=== PATIENT | male | born 1965 | race African-American/Black ===

== ENCOUNTER 2016-11-19 22:50 | Inpatient (IN) | payer OTHER ==
--- NOTE | 2016-11-19 23:12 | HP ---
CIWA Score - CIWA Score Nausea/Vomitin-Mild Nausea/No Vomiting Muscle Tremors: 5 Anxiety: 4-Mod. Anxious/Guarded Agitation: 4-Moderately Restless Paroxysmal Sweats: 2 Orientation: 3-Disoriented Date>2 days Tacttile Disturbances: 0-None Auditory Disturbances: 0-None Visual Disturbances: 0-None Headache: 1-Very Mild CIWA-Ar Total Score: 20 Admission ROS BHS - HPI Chief Complaint: WITHDRAWAL SX Allergies/Adverse Reactions: Allergies Allergy/AdvReac Type Severity Reaction Status Date / Time No Known Allergies Allergy Verified 08/22/16 12:14 History of Present Illness: 50 YEARS OLD MALE WITH LONG HISTORY OF ALCOHOL COCAINE NICOTINE DEPENDENT, HAS GERD AND TOOTH ACHE AND DEPRESSION IS ADMITTED TO DETOX Exam Limitations: No Limitations - Ebola screening Have you traveled outside of the country in the last 21 days: No Have you had contact with anyone from an Ebola affected area: No Have you been sick,other than usual withdrawal symptoms: No Do you have a fever: No - Review of Systems Constitutional: Chills, Loss of Appetite, Changes in sleep, Unintentional Wgt. Loss, Unexplained wgt Loss EENT: reports: No Symptoms Reported, Dental Problems (RIGHT UPPER TOOTH INFECTION) Respiratory: reports: No Symptoms reported Cardiac: reports: No Symptoms Reported GI: reports: Diarrhea, Nausea, Poor Appetite, Poor Fluid Intake, Indigestion, Abdominal cramping : reports: No Symptoms Reported Musculoskeletal: reports: Joint Pain, Muscle Pain (RIGHT HAND ARTHRITIS) Integumentary: reports: No Symptoms Reported Neuro: reports: Tremors Endocrine: reports: No Symptoms Reported Hematology: reports: No Symptoms Reported Psychiatric: reports: Judgement Intact, Depressed Other Systems: Reviewed and Negative Patient History - Patient Medical History Hx Anemia: No Hx Asthma: No Hx Chronic Obstructive Pulmonary Disease (COPD): No Hx Cancer: No Hx Cardiac Disorders: No Hx Congestive Heart Failure: No Hx Hypertension: No Hx Hypercholesterolemia: No Hx Pacemaker: No HX Cerebrovascular Accident: No Hx Seizures: No Hx Dementia: No Hx Diabetes: No Hx Gastrointestinal Disorders: Yes Hx Liver Disease: No Hx Genitourinary Disorders: No Hx Sexually Transmitted Disorders: No Hx Renal Disease (ESRD): No Hx Thyroid Disease: No Hx Human Immunodeficiency Virus (HIV): No (NEGATIVE HX) Hx Hepatitis C: No Hx Depression: Yes (ON MED) Hx Suicide Attempt: No Hx Bipolar Disorder: No Hx Schizophrenia: No - Patient Surgical History Past Surgical History: Yes Hx Neurologic Surgery: No Hx Cataract Extraction: No Hx Cardiac Surgery: No Hx Lung Surgery: No Hx Breast Surgery: No Hx Breast Biopsy: No Hx Abdominal Surgery: No Hx Appendectomy: No Hx Cholecystectomy: No Hx Genitourinary Surgery: No Hx Orthopedic Surgery: Yes (LOWER JAW FX 1990) Anesthesia Reaction: No - PPD History Previous Implant?: Yes Documented Results: Positive w/proof Implanted On Prior [facility] Admission?: Yes Date: 03/02/15 (NEGATIVE WEEK AGO IN [facility]) Results: 05 mm PPD to be Administered?: Yes - Smoking Cessation Smoking history: Current every day smoker Have you smoked in the past 12 months: Yes Aproximately how many cigarettes per day: 20 Cigars Per Day: 0 Hx Chewing Tobacco Use: No Initiated information on smoking cessation: Yes 'Breaking Loose' booklet given: 11/19/16 - Substance & Tx. History Hx Alcohol Use: Yes Hx Substance Use: Yes Substance Use Type: Alcohol, Cocaine Hx Substance Use Treatment: Yes - Substances Abused Alcohol Route: Oral Frequency: Daily Amount used: 40OZX6+ PINT VOLKA Age of first use: 30 Date of Last Use: 11/18/16 Family Disease History - Family Disease History Family Disease History: Diabetes: Grandparent, Mother, Heart Disease: Father, Mother Admission Physical Exam [facility] - Physical General Appearance: Yes: Appropriately Dressed, Moderate Distress, Thin, Tremorous, Irritable, Sweating, Anxious HEENTM: Yes: Hearing grossly Normal, Normal ENT Inspection, Normocephalic, Normal Voice Respiratory: Yes: Chest Non-Tender, Lungs Clear, Normal Breath Sounds, No Respiratory Distress, No Accessory Muscle Use Neck: Yes: Supple, Trachea in good position Breast: Yes: Breasts Symetrical Cardiology: Yes: Regular Rhythm, S1, S2, Tachycardia Abdominal: Yes: Non Tender, Soft Genitourinary: Yes: Within Normal Limits Back: Yes: Normal Inspection Musculoskeletal: Yes: full range of Motion, Gait Steady, Back pain, Muscle Pain Extremities: Yes: Normal Range of Motion, Non-Tender, Tremors Neurological: Yes: Alert, Motor Strength 5/5, Normal Response, Depressed Affect Integumentary: Yes: Warm, Clammy Lymphatic: Yes: Within Normal Limits - Diagnostic (1) Alcohol dependence with uncomplicated withdrawal Current Visit: Yes Status: Acute Comment: LIBRIUM (2) Bipolar II disorder Current Visit: Yes Status: Suspected Comment: ZOLOFT+TRAZODON+SEROQUEL (3) Nicotine dependence Current Visit: Yes Status: Acute Qualifiers: Nicotine product type: cigarettes Substance use status: in withdrawal Qualified Code(s): F17.213 - Nicotine dependence, cigarettes, with withdrawal Comment: NICOTINE PATCH + GUM (4) weight loss Current Visit: Yes Status: Acute Comment: ENSURE (5) Tooth abscess Current Visit: Yes Status: Acute Comment: AUGMENTIN+CHLORHEXDINE+LIDOCAINE 2% (6) Positive PPD, treated Current Visit: Yes Status: Resolved Comment: NEGATIVE CHEST X RAY 08/2016 Cleared for Admission S - Detox or Rehab S Level of Care: Medically Managed Detox Regimen/Protocol: Librium (PATIENT CONCUR TREATMENT REGIMEN) [facility] Breath Alcohol Content Breath Alcohol Content: 0 Vital Signs - Vital Signs Vital Signs Refused: No Temperature: 97.9 F Temperature Source: Oral Pulse Rate: 90 Respiratory Rate: 20 Blood Pressure: 123/79 BP Location: Left Arm Blood Pressure Position: Sitting - Height Height: 5 ft 11 in - Weight Weight: 186 lb Weight Measurement Method: Standing Scale Body Mass Index (BMI): 25.9 - Bowel Function Bowel Movement: Yes Urine Drug Screen - Control Is Test Valid: Yes - Results Drug Screen Negative: No Urine Drug Screen Results: JOVANA-Cocaine
[2016-11-19] MEDS ORDERED: MAGNESIUM CITRATE 300 ML BOTTLE PO PRN (23:20)
[2016-11-19] MEDS ORDERED: MENTHOL/PHENOL 1 EACH UD MM PRN (23:20)
[2016-11-19] MEDS ORDERED: diphenhydrAMINE HCL 50 MG CAPSULE PO PRN (23:20)
[2016-11-19] MEDS ORDERED: ACETAMINOPHEN 325 MG TABLET (FP) PO PRN (23:20)
[2016-11-19] MEDS ORDERED: hydrOXYzine PAMOATE 50 MG CAPSULE (FP) PO PRN (23:20)
[2016-11-19] MEDS ORDERED: MAG HYDROX/AL HYDROX/SIMETH 30 ML UNIT-DOSE CUP PO PRN (23:20)
[2016-11-19] MEDS ORDERED: guaiFENesin/D-METHORPHAN HB 10 ML UNIT-DOSE CUPS PO PRN (23:20)
[2016-11-19] MEDS ORDERED: chlordiazePOXIDE HCL 25 MG CAPSULE PO ONE (23:20)
[2016-11-19] MEDS ORDERED: LOPERAMIDE HCL 2 MG CAPSULE PO PRN (23:20)
[2016-11-19] MEDS ORDERED: NICOTINE POLACRILEX 4 MG GUM BC PRN (23:20)
[2016-11-19] MEDS ORDERED: P-EPHED 60MG/TRIPROLIDI 2.5MG TABLET PO PRN (23:20)
[2016-11-19] MEDS ORDERED: MAGNESIUM HYDROX 2400MG/30ML ORAL SUSPENSION 30 ML CUP PO PRN (23:20)
[2016-11-19 23:22] VITALS: BMI 25.9
[2016-11-19] MEDS ORDERED: LIDOCAINE VISCOUS 2% ORAL/TOP 20 ML UNIT-DOSE CUP MM SCH (23:30)
[2016-11-20] MEDS ORDERED: diphenhydrAMINE HCL 25 MG CAPSULE (FP) PO ONE (00:51)
[2016-11-20] MEDS: RANITIDINE HCL 150 MG TABLET (FP) PO SCH ×3 (00:53→22:47)
[2016-11-20] MEDS: GABAPENTIN 300 MG CAPSULE (FP) PO SCH ×4 (00:53→22:47)
[2016-11-20] MEDS: chlordiazePOXIDE HCL 25 MG CAPSULE PO SCH ×5 (00:55→22:47)
[2016-11-20] MEDS: AMOX TR/POT CLAV 875MG/125MG TABLETS (FP) PO SCH ×2 (07:20→17:47)
[2016-11-20] MEDS: LIDOCAINE VISCOUS 2% ORAL/TOP 20 ML UNIT-DOSE CUP MM SCH ×3 (07:21→22:47)
[2016-11-20] MEDS: CHLORHEXIDINE GLUCONATE 0.12% 15ML CUP MM SCH ×3 (07:27→22:46)
--- NOTE | 2016-11-20 09:23 | PN ---
S CIWA - CIWA Score Nausea/Vomitin Muscle Tremors: 3 Anxiety: 3 Agitation: 2 Paroxysmal Sweats: 1-Minimal Palms Moist Orientation: 0-Oriented Tacttile Disturbances: 1-Very Mild Itch/Numbness Auditory Disturbances: 1-Very Mild Visual Disturbances: 1-Very Mild Sensitivity Headache: 2-Mild CIWA-Ar Total Score: 17 BHS Progress Note (SOAP) Subjective: ALERT,IRRITABLE,ANXIOUS,INTERRUPTED SLEEP,TREMOR Objective: 11/20/16 09:21 Vital Signs Temperature 96.6 F L 11/20/16 06:47 Pulse Rate 62 11/20/16 06:47 Respiratory Rate 18 11/20/16 06:47 Blood Pressure 103/77 11/20/16 06:47 O2 Sat by Pulse Oximetry (%) EKG NSR LABS PENDING Assessment: 11/20/16 09:22 WITHDRAWAL SYMPTOM Plan: CONTINUE DETOX
[2016-11-20 10:35] LABS: MCH 30.2 pg (25.7-33.7); MCHC 33.8 g/dl (32.0-35.9); MEAN CELL VOLUME 89.4 fl (80-96); PLATELET COUNT 139 K/MM3 (134-434); RDW 12.8 % (11.9-15.9); WHITE BLOOD COUNT 6.3 K/mm3 (4.0-10.0)
[2016-11-20] MEDS: PRENATAL VITAMINS W/ FOLIC ACID TABLET (FP) PO SCH (10:49)
[2016-11-20] MEDS: NICOTINE 21 MG/24 HOURS TOPICAL PATCH TD SCH (10:49)
[2016-11-20 10:56] LABS: ANION GAP 8 (8-16); CALCIUM 8.3 mg/dL (8.5-10.1); CO2 29 mmol/L (21-32); GLUCOSE,RANDOM 85 mg/dL (74-106); SGOT/AST 6 U/L (15-37); SGPT/ALT 15 U/L (12-78)
[2016-11-20 10:59] LABS: ALBUMIN 3.6 g/dl (3.4-5.0); ALK PHOS 63 U/L (45-117); BILIRUBIN,TOTAL 0.4 mg/dL (0.2-1.0); TOT PROT 5.7 g/dl (6.4-8.2)
--- NOTE | 2016-11-20 13:19 | EKG ---
Test Reason : Blood Pressure : / mmHG Vent. Rate : 076 BPM Atrial Rate : 076 BPM P-R Int : 158 ms QRS Dur : 098 ms QT Int : 384 ms P-R-T Axes : 061 -39 036 degrees QTc Int : 432 ms NORMAL SINUS RHYTHM LEFT AXIS DEVIATION ABNORMAL ECG NO PREVIOUS ECGS AVAILABLE Confirmed by EVAN MENDEZ MD ([id number]) on 11/20/2016 1:18:58 PM Referred By: Confirmed By:EVAN MENDEZ MD
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
[2016-11-20] MEDS: chlordiazePOXIDE HCL 25 MG CAPSULE PO PRN (14:04)
[2016-11-20] MEDS: THIAMINE HCL 100 MG TABLET (FP) PO SCH (22:46)
[2016-11-20] MEDS: QUEtiapine FUMARATE 200 MG TABLET PO SCH (22:46)
[2016-11-21] MEDS: GABAPENTIN 300 MG CAPSULE (FP) PO SCH ×3 (05:53→22:30)
[2016-11-21] MEDS: chlordiazePOXIDE HCL 25 MG CAPSULE PO SCH ×3 (05:53→17:04)
[2016-11-21] MEDS: LIDOCAINE VISCOUS 2% ORAL/TOP 20 ML UNIT-DOSE CUP MM SCH ×3 (05:53→22:33)
[2016-11-21] MEDS: CHLORHEXIDINE GLUCONATE 0.12% 15ML CUP MM SCH ×3 (05:53→22:31)
[2016-11-21] MEDS: AMOX TR/POT CLAV 875MG/125MG TABLETS (FP) PO SCH ×2 (07:19→17:04)
[2016-11-21] MEDS ORDERED: QUEtiapine FUMARATE 100 MG TABLET (FP) PO SCH (10:00)
--- NOTE | 2016-11-21 10:38 | PN ---
S CIWA - CIWA Score Nausea/Vomitin Muscle Tremors: 3 Anxiety: 3 Agitation: 2 Paroxysmal Sweats: 1-Minimal Palms Moist Orientation: 0-Oriented Tacttile Disturbances: 1-Very Mild Itch/Numbness Auditory Disturbances: 1-Very Mild Visual Disturbances: 1-Very Mild Sensitivity Headache: 2-Mild CIWA-Ar Total Score: 17 BHS Progress Note (SOAP) Subjective: ALERT,IRRITABLE,ANXIOUS,INTERRUPTED SLEEP,TREMOR,CONSTIPATION, Objective: 11/21/16 10:36 Vital Signs Temperature 96.6 F L 11/21/16 09:53 Pulse Rate 84 11/21/16 09:53 Respiratory Rate 18 11/21/16 09:53 Blood Pressure 119/74 11/21/16 09:53 O2 Sat by Pulse Oximetry (%) EKG NSR 11/21/16 10:37 Laboratory Last Values WBC 6.3 K/mm3 (4.0-10.0) 11/20/16 07:00 RBC 4.61 M/mm3 (4.00-5.60) 11/20/16 07:00 Hgb 13.9 GM/dL (11.7-16.9) 11/20/16 07:00 Hct 41.2 % (35.4-49) 11/20/16 07:00 MCV 89.4 fl (80-96) 11/20/16 07:00 MCHC 33.8 g/dl (32.0-35.9) 11/20/16 07:00 RDW 12.8 % (11.9-15.9) 11/20/16 07:00 Plt Count 139 K/MM3 (134-434) 11/20/16 07:00 MPV 8.0 fl (7.5-11.1) D 11/20/16 07:00 Sodium 144 mmol/L (136-145) 11/20/16 07:00 Potassium 3.6 mmol/L (3.5-5.1) 11/20/16 07:00 Chloride 107 mmol/L (98-107) 11/20/16 07:00 Carbon Dioxide 29 mmol/L (21-32) 11/20/16 07:00 Anion Gap 8 (8-16) 11/20/16 07:00 BUN 20 mg/dL (7-18) H D 11/20/16 07:00 Creatinine 1.0 mg/dL (0.7-1.3) 11/20/16 07:00 Creat Clearance w eGFR > 60 (>60) 11/20/16 07:00 Random Glucose 85 mg/dL (74-106) D 11/20/16 07:00 Calcium 8.3 mg/dL (8.5-10.1) L 11/20/16 07:00 Total Bilirubin 0.4 mg/dL (0.2-1.0) D 11/20/16 07:00 AST 6 U/L (15-37) L D 11/20/16 07:00 ALT 15 U/L (12-78) 11/20/16 07:00 Alkaline Phosphatase 63 U/L (45-117) 11/20/16 07:00 Total Protein 5.7 g/dl (6.4-8.2) L 11/20/16 07:00 Albumin 3.6 g/dl (3.4-5.0) 11/20/16 07:00 RPR Titer Nonreactive (NONREACTIVE) 11/20/16 07:00 Hepatitis C Antibody <0.1 s/co ratio (0.0-0.9) 11/19/16 07:00 Assessment: 11/21/16 10:38 WITHDRAWAL SYMPTOM Plan: CONTINUE DETOX
[2016-11-21] MEDS: PRENATAL VITAMINS W/ FOLIC ACID TABLET (FP) PO SCH (10:44)
[2016-11-21] MEDS: SERTRALINE HCL 50 MG TABLET (FP) PO SCH (10:44)
[2016-11-21] MEDS: NICOTINE 21 MG/24 HOURS TOPICAL PATCH TD SCH (10:44)
[2016-11-21] MEDS: RANITIDINE HCL 150 MG TABLET (FP) PO SCH ×2 (10:44→22:30)
[2016-11-21] MEDS: DOCUSATE SODIUM 100 MG CAPSULE (FP) PO SCH ×2 (14:55→22:30)
[2016-11-21] MEDS: THIAMINE HCL 100 MG TABLET (FP) PO SCH (22:30)
[2016-11-21] MEDS: chlordiazePOXIDE 5 MG CAPSULE PO SCH (22:30)
[2016-11-21] MEDS: QUEtiapine FUMARATE 200 MG TABLET PO SCH (22:30)
[2016-11-22] MEDS: DOCUSATE SODIUM 100 MG CAPSULE (FP) PO SCH ×3 (05:35→22:35)
[2016-11-22] MEDS: GABAPENTIN 300 MG CAPSULE (FP) PO SCH ×3 (05:35→22:35)
[2016-11-22] MEDS: CHLORHEXIDINE GLUCONATE 0.12% 15ML CUP MM SCH ×3 (05:35→22:35)
[2016-11-22] MEDS: chlordiazePOXIDE 5 MG CAPSULE PO SCH ×3 (05:35→17:30)
[2016-11-22] MEDS: LIDOCAINE VISCOUS 2% ORAL/TOP 20 ML UNIT-DOSE CUP MM SCH ×3 (05:35→22:39)
[2016-11-22] MEDS: AMOX TR/POT CLAV 875MG/125MG TABLETS (FP) PO SCH ×2 (08:00→17:30)
[2016-11-22] MEDS: chlordiazePOXIDE HCL 25 MG CAPSULE PO PRN (09:41)
[2016-11-22] MEDS: SERTRALINE HCL 50 MG TABLET (FP) PO SCH (09:41)
[2016-11-22] MEDS: RANITIDINE HCL 150 MG TABLET (FP) PO SCH ×2 (09:41→22:35)
[2016-11-22] MEDS: PRENATAL VITAMINS W/ FOLIC ACID TABLET (FP) PO SCH (09:44)
[2016-11-22] MEDS: NICOTINE 21 MG/24 HOURS TOPICAL PATCH TD SCH (09:44)
--- NOTE | 2016-11-22 15:29 | PN ---
BHS Progress Note (SOAP) Subjective: Tremors, Anxiety. Objective: PT. A & O X 2 (DISORIENTED ABOUT DAY / DATE). PT. OBSERVED AMBULATING ON UNIT. 11/22/16 15:27 Vital Signs Temperature 97.9 F 11/22/16 14:24 Pulse Rate 80 11/22/16 14:24 Respiratory Rate 18 11/22/16 14:24 Blood Pressure 121/77 11/22/16 14:24 O2 Sat by Pulse Oximetry (%) Laboratory Last Values WBC 6.3 K/mm3 (4.0-10.0) 11/20/16 07:00 RBC 4.61 M/mm3 (4.00-5.60) 11/20/16 07:00 Hgb 13.9 GM/dL (11.7-16.9) 11/20/16 07:00 Hct 41.2 % (35.4-49) 11/20/16 07:00 MCV 89.4 fl (80-96) 11/20/16 07:00 MCHC 33.8 g/dl (32.0-35.9) 11/20/16 07:00 RDW 12.8 % (11.9-15.9) 11/20/16 07:00 Plt Count 139 K/MM3 (134-434) 11/20/16 07:00 MPV 8.0 fl (7.5-11.1) D 11/20/16 07:00 Sodium 144 mmol/L (136-145) 11/20/16 07:00 Potassium 3.6 mmol/L (3.5-5.1) 11/20/16 07:00 Chloride 107 mmol/L (98-107) 11/20/16 07:00 Carbon Dioxide 29 mmol/L (21-32) 11/20/16 07:00 Anion Gap 8 (8-16) 11/20/16 07:00 BUN 20 mg/dL (7-18) H D 11/20/16 07:00 Creatinine 1.0 mg/dL (0.7-1.3) 11/20/16 07:00 Creat Clearance w eGFR > 60 (>60) 11/20/16 07:00 Random Glucose 85 mg/dL (74-106) D 11/20/16 07:00 Calcium 8.3 mg/dL (8.5-10.1) L 11/20/16 07:00 Total Bilirubin 0.4 mg/dL (0.2-1.0) D 11/20/16 07:00 AST 6 U/L (15-37) L D 11/20/16 07:00 ALT 15 U/L (12-78) 11/20/16 07:00 Alkaline Phosphatase 63 U/L (45-117) 11/20/16 07:00 Total Protein 5.7 g/dl (6.4-8.2) L 11/20/16 07:00 Albumin 3.6 g/dl (3.4-5.0) 11/20/16 07:00 RPR Titer Nonreactive (NONREACTIVE) 11/20/16 07:00 Hepatitis C Antibody <0.1 s/co ratio (0.0-0.9) 11/19/16 07:00 LABS NOTED. Assessment: 11/22/16 15:28 WITHDRAWAL SYMPTOMS. Plan: CONTINUE DETOX.
[2016-11-22] MEDS: THIAMINE HCL 100 MG TABLET (FP) PO SCH (22:34)
[2016-11-22] MEDS: QUEtiapine FUMARATE 200 MG TABLET PO SCH (22:34)
[2016-11-22] MEDS: chlordiazePOXIDE HCL 10 MG CAPSULE PO SCH (22:35)
[2016-11-23] MEDS: GABAPENTIN 300 MG CAPSULE (FP) PO SCH (05:55)
[2016-11-23] MEDS: DOCUSATE SODIUM 100 MG CAPSULE (FP) PO SCH (05:55)
[2016-11-23] MEDS: chlordiazePOXIDE HCL 10 MG CAPSULE PO SCH (05:55)
[2016-11-23] MEDS: CHLORHEXIDINE GLUCONATE 0.12% 15ML CUP MM SCH (05:56)
[2016-11-23] MEDS: LIDOCAINE VISCOUS 2% ORAL/TOP 20 ML UNIT-DOSE CUP MM SCH (05:56)
[2016-11-23 06:35] VITALS: BP 119/77; PULSE 81; TEMP 95.8
[2016-11-23] MEDS: AMOX TR/POT CLAV 875MG/125MG TABLETS (FP) PO SCH (07:15)
[2016-11-23 10:37] LABS: URINE APPEARANCE CLEAR; URINE BILIRUBIN NEGATIVE (NEGATIVE); URINE BLOOD NEGATIVE (NEGATIVE); URINE COLOR LTYELLOW; URINE GLUCOSE (UA) NEGATIVE (NEGATIVE); URINE KETONE NEGATIVE (NEGATIVE); URINE LEUK ESTERASE NEGATIVE (NEGATIVE); URINE NITRITE NEGATIVE (NEGATIVE); URINE PROTEIN NEGATIVE (NEGATIVE); URINE UROBILINOGEN NEGATIVE E.U./dl (0.2-1.0)
--- NOTE | 2016-11-23 15:06 | DS ---
[facility] Detox Discharge Summary Admission Date: 11/19/16 Discharge Date: 11/23/16 - History Present History: Alcohol Dependence Additional Comments: ADVISED PATIENT TO FOLLOW-UP WITH [facility] / REHAB MEDICAL PROVIDER AFTER DISCHARGE FROM DETOX FOR GENERAL MEDICAL ASSESSMENT AND FOR ANY ABNORMAL ADMISSION LAB VALUES. Pertinent Past History: Depression, Bi-Polar disorder, Positive PPD (Treated). - Physical Exam Results Vital Signs: Vital Signs Temperature 95.8 F L 11/23/16 06:34 Pulse Rate 81 11/23/16 06:34 Respiratory Rate 18 11/23/16 06:34 Blood Pressure 119/77 11/23/16 06:34 O2 Sat by Pulse Oximetry (%) Pertinent Admission Physical Exam Findings: WITHDRAWAL SYMPTOMS. Laboratory Last Values WBC 6.3 K/mm3 (4.0-10.0) 11/20/16 07:00 RBC 4.61 M/mm3 (4.00-5.60) 11/20/16 07:00 Hgb 13.9 GM/dL (11.7-16.9) 11/20/16 07:00 Hct 41.2 % (35.4-49) 11/20/16 07:00 MCV 89.4 fl (80-96) 11/20/16 07:00 MCHC 33.8 g/dl (32.0-35.9) 11/20/16 07:00 RDW 12.8 % (11.9-15.9) 11/20/16 07:00 Plt Count 139 K/MM3 (134-434) 11/20/16 07:00 MPV 8.0 fl (7.5-11.1) D 11/20/16 07:00 Sodium 144 mmol/L (136-145) 11/20/16 07:00 Potassium 3.6 mmol/L (3.5-5.1) 11/20/16 07:00 Chloride 107 mmol/L (98-107) 11/20/16 07:00 Carbon Dioxide 29 mmol/L (21-32) 11/20/16 07:00 Anion Gap 8 (8-16) 11/20/16 07:00 BUN 20 mg/dL (7-18) H D 11/20/16 07:00 Creatinine 1.0 mg/dL (0.7-1.3) 11/20/16 07:00 Creat Clearance w eGFR > 60 (>60) 11/20/16 07:00 Random Glucose 85 mg/dL (74-106) D 11/20/16 07:00 Calcium 8.3 mg/dL (8.5-10.1) L 11/20/16 07:00 Total Bilirubin 0.4 mg/dL (0.2-1.0) D 11/20/16 07:00 AST 6 U/L (15-37) L D 11/20/16 07:00 ALT 15 U/L (12-78) 11/20/16 07:00 Alkaline Phosphatase 63 U/L (45-117) 11/20/16 07:00 Total Protein 5.7 g/dl (6.4-8.2) L 11/20/16 07:00 Albumin 3.6 g/dl (3.4-5.0) 11/20/16 07:00 Urine Color Ltyellow 11/23/16 08:13 Urine Appearance Clear 11/23/16 08:13 Urine pH 6.0 (5.0-8.0) 11/23/16 08:13 Ur Specific [place] 1.016 (1.001-1.035) 11/23/16 08:13 Urine Protein Negative (NEGATIVE) 11/23/16 08:13 Urine Glucose (UA) Negative (NEGATIVE) 11/23/16 08:13 Urine Ketones Negative (NEGATIVE) 11/23/16 08:13 Urine Blood Negative (NEGATIVE) 11/23/16 08:13 Urine Nitrite Negative (NEGATIVE) 11/23/16 08:13 Urine Bilirubin Negative (NEGATIVE) 11/23/16 08:13 Urine Urobilinogen Negative E.U./dl (0.2-1.0) 11/23/16 08:13 Ur Leukocyte Esterase Negative (NEGATIVE) 11/23/16 08:13 RPR Titer Nonreactive (NONREACTIVE) 11/20/16 07:00 Hepatitis C Antibody <0.1 s/co ratio (0.0-0.9) 11/19/16 07:00 LABS NOTED. - Treatment Hospital Course: Detox Protocol Followed, Detoxed Safely, Responded well, Discharged Condition Good Patient has Accepted a Rehab Referral to: NOT AT THIS TIME; PATIENT CONSIDERING FOR LATER. - Medication Discharge Medications: Ambulatory Orders Sertraline HCl [Zoloft -] 100 mg PO DAILY #30 tablet 08/25/15 Trazodone HCl [Desyrel -] 100 mg PO HS #30 tablet 08/25/15 Quetiapine Fumarate [Seroquel -] 200 mg PO HS #30 09/18/15 Quetiapine Fumarate [Seroquel -] 200 mg PO HS #30 tab 08/23/16 Sertraline HCl [Zoloft] 100 mg PO DAILY #30 tablet 08/23/16 Trazodone HCl 100 mg PO DAILY #30 tablet 08/23/16 Quetiapine Fumarate [Seroquel -] 200 mg PO HS #30 tab 11/20/16 Sertraline HCl [Zoloft -] 100 mg PO DAILY #30 tablet 11/20/16 Trazodone HCl [Desyrel -] 50 mg PO HS #30 tablet 11/20/16 - Diagnosis (1) Alcohol dependence with uncomplicated withdrawal Status: Acute (2) Drug-induced mood disorder Status: Acute (3) Nicotine dependence Status: Chronic Qualifiers: Nicotine product type: cigarettes Substance use status: in withdrawal Qualified Code(s): F17.213 - Nicotine dependence, cigarettes, with withdrawal (4) Tooth abscess Status: Acute (5) Insomnia Status: Chronic Qualifiers: Insomnia type: unspecified Qualified Code(s): G47.00 - Insomnia, unspecified (6) Low back pain Status: Chronic Qualifiers: Back pain laterality: unspecified Sciatica presence: unspecified whether sciatica present (7) Bipolar II disorder Status: Suspected (8) PPD positive, treated Status: Resolved - AMA Did Patient Leave Against Medical Advice: No
== END 2016-11-23 09:21 | disposition home or self-care (01) | DRG 774 ==
LOC: YASAS 22:50 → Y3N 23:19
PROVIDERS: ADMIT Internal Medicine Addiction Medicine; ATTEND Internal Medicine
PROC: HZ2ZZZZ Detoxification Services for Substance Abuse Treatment (ICD-10-PCS; principal; 2016-11-23)
DX: F13.230 Sedative, hypnotic or anxiolytic dependence with withdrawal, uncomplicated (principal); F10.20 Alcohol dependence, uncomplicated; F14.20 Cocaine dependence, uncomplicated; F17.210 Nicotine dependence, cigarettes, uncomplicated; F19.24 Other psychoactive substance dependence with psychoactive substance-induced mood disorder; F31.81 Bipolar II disorder; G47.00 Insomnia, unspecified; M54.5 Low back pain; G89.29 Other chronic pain; K04.7 Periapical abscess without sinus; R76.11 Nonspecific reaction to tuberculin skin test without active tuberculosis; R63.4 Abnormal weight loss; Z68.25 Body mass index [BMI] 25.0-25.9, adult
CPT/HCPCS: 36415; 80053; 81003; 85027; 86593; 93005; 93010

== ENCOUNTER 2017-10-10 17:27 | Inpatient (IN) | payer OTHER ==
[2017-10-10 19:57] VITALS: BMI 24.5
--- NOTE | 2017-10-10 21:21 | HP ---
CIWA Score - CIWA Score Nausea/Vomitin Muscle Tremors: 4-Moderate,w/Arms Extend Anxiety: 4-Mod. Anxious/Guarded Agitation: 4-Moderately Restless Paroxysmal Sweats: 3 Orientation: 1-Uncertain about Date Tacttile Disturbances: 3-Moderate Itch/Numb/Burn Auditory Disturbances: 0-None Visual Disturbances: 0-None Headache: 3-Moderate CIWA-Ar Total Score: 24 Admission ROS BHS - HPI Chief Complaint: C/O WITHDRAWAL SX'S. SEEKING DETOX TXMENT Allergies/Adverse Reactions: Allergies Allergy/AdvReac Type Severity Reaction Status Date / Time No Known Allergies Allergy Verified 10/10/17 20:58 History of Present Illness: 51 Y.O. MALE WITH LONG HX/O ALCOHOLISM ADMITTED TO DETOX. HE WAS REFERRED BY HIS . HE IS KNOWN TO THIS DETOX. LAST HERE 08/2017. DENIES ANY SIGNIFICANT PERIOD OF CLEAN TIME. DENIES LEGAL ISSUES Exam Limitations: No Limitations - Ebola screening Have you traveled outside of the country in the last 21 days: No Have you had contact with anyone from an Ebola affected area: No Have you been sick,other than usual withdrawal symptoms: No Do you have a fever: No - Review of Systems Constitutional: Chills, Loss of Appetite, Malaise, Night Sweats, Changes in sleep EENT: reports: Nose Congestion, Dental Problems (C/O GUM INFECTION) Respiratory: reports: No Symptoms reported Cardiac: reports: No Symptoms Reported GI: reports: Diarrhea, Nausea, Poor Appetite, Poor Fluid Intake : reports: No Symptoms Reported Musculoskeletal: reports: Back Pain Integumentary: reports: No Symptoms Reported Neuro: reports: No Symptoms reported Endocrine: reports: No Symptoms Reported Hematology: reports: No Symptoms Reported Psychiatric: reports: Anxious, Depressed Other Systems: Reviewed and Negative Patient History - Patient Medical History Hx Anemia: No Hx Asthma: No Hx Chronic Obstructive Pulmonary Disease (COPD): No Hx Cancer: No Hx Cardiac Disorders: No Hx Congestive Heart Failure: No Hx Hypertension: No Hx Hypercholesterolemia: No Hx Pacemaker: No HX Cerebrovascular Accident: No Hx Seizures: No Hx Dementia: No Hx Diabetes: No Hx Gastrointestinal Disorders: Yes (GERD) Hx Liver Disease: No Hx Genitourinary Disorders: No Hx Sexually Transmitted Disorders: No Hx Renal Disease (ESRD): No Hx Thyroid Disease: No Hx Human Immunodeficiency Virus (HIV): No Hx Hepatitis C: No Hx Depression: Yes (ON MED) Hx Suicide Attempt: No Hx Bipolar Disorder: No Hx Schizophrenia: No Other Medical History: DENIES - Patient Surgical History Past Surgical History: Yes Hx Neurologic Surgery: No Hx Cataract Extraction: No Hx Cardiac Surgery: No Hx Lung Surgery: No Hx Breast Surgery: No Hx Breast Biopsy: No Hx Abdominal Surgery: No Hx Appendectomy: No Hx Cholecystectomy: No Hx Genitourinary Surgery: No Hx Section: No Hx Orthopedic Surgery: Yes (LOWER JAW FX 1990) Hx Hysterectomy: No Anesthesia Reaction: No - PPD History Previous Implant?: Yes Documented Results: Positive w/proof Implanted On Prior [facility] Admission?: Yes Date: 03/02/15 Results: 05 mm PPD to be Administered?: No - Smoking Cessation Smoking history: Current every day smoker Have you smoked in the past 12 months: Yes Aproximately how many cigarettes per day: 20 Cigars Per Day: 0 Hx Chewing Tobacco Use: No Initiated information on smoking cessation: Yes 'Breaking Loose' booklet given: 10/10/17 - Substance & Tx. History Hx Alcohol Use: Yes Hx Substance Use: Yes Substance Use Type: Alcohol, Cocaine, Marijuana Hx Substance Use Treatment: Yes ([facility]) - Substances Abused Alcohol Route: Oral Frequency: Daily COCAINE Route: Smoking Frequency: 1-3 times last 30 days Amount used: $100 Age of first use: 30 Date of Last Use: 10/09/17 THC Route: Smoking Frequency: Daily Amount used: DIME BAG Age of first use: 30 Date of Last Use: 10/09/17 Family Disease History - Family Disease History Family Disease History: Diabetes: Grandparent, Mother, Heart Disease: Father, Mother Admission Physical Exam [facility] - Vital Signs Vital Signs: Vital Signs - 24 hr 10/10/17 19:55 Temperature 96.8 F L Pulse Rate 67 Respiratory 18 Rate Blood Pressure 118/78 - Physical General Appearance: Yes: Appropriately Dressed, Mild Distress, Tremorous, Anxious HEENTM: Yes: EOMI, Normocephalic, Normal Voice, TOMMY, Pharynx Normal, Other ( POOR DENTITION) Respiratory: Yes: Chest Non-Tender, Lungs Clear, Normal Breath Sounds, No Respiratory Distress, No Accessory Muscle Use Neck: Yes: No masses,lesions,Nodules, Supple, Trachea in good position Breast: Yes: Breast Exam Deferred Cardiology: Yes: Regular Rhythm, Regular Rate, S1, S2 Abdominal: Yes: Normal Bowel Sounds, Non Tender, Soft Genitourinary: Yes: Within Normal Limits Back: Yes: Normal Inspection Musculoskeletal: Yes: full range of Motion, Gait Steady Extremities: Yes: Normal Capillary Refill, Normal Range of Motion, Non-Tender, Tremors Neurological: Yes: occupational therapy instructor II-XII NML intact, Fully Oriented, Alert, Motor Strength 5/5 Integumentary: Yes: Normal Color, Dry, Warm Lymphatic: Yes: Within Normal Limits - Diagnostic (1) Cannabis dependence, uncomplicated Current Visit: Yes Status: Chronic (2) Alcohol dependence with uncomplicated withdrawal Current Visit: No Status: Chronic Comment: LIBRIUM (3) Cocaine dependence, uncomplicated Current Visit: No Status: Chronic (4) Nicotine dependence Current Visit: No Status: Chronic Qualifiers: Nicotine product type: cigarettes Substance use status: in withdrawal Qualified Code(s): F17.213 - Nicotine dependence, cigarettes, with withdrawal Comment: NICOTINE PATCH + GUM (5) PPD positive Current Visit: No Status: Chronic Comment: cxr done 03/03/15 did not show evidence of TB (6) GERD (gastroesophageal reflux disease) Current Visit: Yes Status: Chronic Qualifiers: Esophagitis presence: esophagitis presence not specified Qualified Code(s) : K21.9 - Gastro-esophageal reflux disease without esophagitis Cleared for Admission [facility] - Detox or Rehab [facility] Level of Care: Medically Managed Detox Regimen/Protocol: Librium Claeared for Rehab Admission: No [facility] Breath Alcohol Content Breath Alcohol Content: 0 Urine Drug Screen - Results Drug Screen Negative: No Urine Drug Screen Results: THC-Marijuana, JOVANA-Cocaine
[2017-10-10] MEDS ORDERED: MENTHOL/PHENOL 1 EACH UD MM PRN (21:32)
[2017-10-10] MEDS ORDERED: P-EPHED 60MG/TRIPROLIDI 2.5MG TABLET PO PRN (21:32)
[2017-10-10] MEDS ORDERED: MAGNESIUM CITRATE 300 ML BOTTLE PO PRN (21:32)
[2017-10-10] MEDS ORDERED: MAGNESIUM HYDROX 2400MG/30ML ORAL SUSPENSION 30 ML CUP PO PRN (21:32)
[2017-10-10] MEDS ORDERED: hydrOXYzine PAMOATE 50 MG CAPSULE (FP) PO PRN (21:32)
[2017-10-10] MEDS ORDERED: guaiFENesin/D-METHORPHAN HB 10 ML UNIT-DOSE CUPS PO PRN (21:32)
[2017-10-10] MEDS ORDERED: NICOTINE POLACRILEX 2 MG GUM BUC PRN (21:32)
[2017-10-10] MEDS ORDERED: ACETAMINOPHEN 325 MG TABLET (FP) PO PRN (21:32)
[2017-10-10] MEDS ORDERED: LOPERAMIDE HCL 2 MG CAPSULE PO PRN (21:32)
[2017-10-10] MEDS ORDERED: IBUPROFEN 400 MG TABLET (FP) PO PRN (21:32)
[2017-10-10] MEDS: chlordiazePOXIDE HCL 25 MG CAPSULE PO SCH (23:34)
[2017-10-10] MEDS: THIAMINE HCL 100 MG TABLET (FP) PO SCH (23:38)
[2017-10-11 02:12] LABS: URINE APPEARANCE CLOUDY; URINE BILIRUBIN NEGATIVE (NEGATIVE); URINE BLOOD NEGATIVE (NEGATIVE); URINE COLOR YELLOW; URINE GLUCOSE (UA) NEGATIVE (NEGATIVE); URINE KETONE NEGATIVE (NEGATIVE); URINE LEUK ESTERASE NEGATIVE (NEGATIVE); URINE NITRITE NEGATIVE (NEGATIVE); URINE PROTEIN NEGATIVE (NEGATIVE); URINE UROBILINOGEN NEGATIVE mg/dL (0.2-1.0)
[2017-10-11] MEDS: chlordiazePOXIDE HCL 25 MG CAPSULE PO PRN ×2 (03:28→21:08)
[2017-10-11] MEDS: MAG HYDROX/AL HYDROX/SIMETH 30 ML UNIT-DOSE CUP PO PRN (03:29)
[2017-10-11] MEDS: chlordiazePOXIDE HCL 25 MG CAPSULE PO SCH ×4 (05:59→23:01)
[2017-10-11] MEDS ORDERED: COLLOIDAL OATMEAL 1 BAR EACH TP PRN (09:52)
--- NOTE | 2017-10-11 09:58 | PN ---
S CIWA - CIWA Score Nausea/Vomitin Muscle Tremors: 3 Anxiety: 3 Agitation: 3 Paroxysmal Sweats: 1-Minimal Palms Moist Orientation: 0-Oriented Tacttile Disturbances: 1-Very Mild Itch/Numbness Auditory Disturbances: 1-Very Mild Visual Disturbances: 0-None Headache: 2-Mild CIWA-Ar Total Score: 17 BHS Progress Note (SOAP) Subjective: ALERT,IRRITABLE,ANXIOUS,INTERRUPTED SLEEP,TREMOR,PAIN IN GUM GINGIVITIS Objective: 10/11/17 09:54 Vital Signs Temperature 98.6 F 10/11/17 06:18 Pulse Rate 60 10/11/17 06:18 Respiratory Rate 16 10/11/17 06:18 Blood Pressure 105/68 10/11/17 06:18 O2 Sat by Pulse Oximetry (%) EKG NSR NO CHEST PAIN,NO SOB,NO DIZZINESS Laboratory Last Values Urine Color Yellow 10/10/17 22:41 Urine Appearance Cloudy 10/10/17 22:41 Urine pH 7.0 (5.0-8.0) 10/10/17 22:41 Ur Specific [place] 1.017 (1.001-1.035) 10/10/17 22:41 Urine Protein Negative (NEGATIVE) 10/10/17 22:41 Urine Glucose (UA) Negative (NEGATIVE) 10/10/17 22:41 Urine Ketones Negative (NEGATIVE) 10/10/17 22:41 Urine Blood Negative (NEGATIVE) 10/10/17 22:41 Urine Nitrite Negative (NEGATIVE) 10/10/17 22:41 Urine Bilirubin Negative (NEGATIVE) 10/10/17 22:41 Urine Urobilinogen Negative mg/dL (0.2-1.0) 10/10/17 22:41 Ur Leukocyte Esterase Negative (NEGATIVE) 10/10/17 22:41 LABS PENDING Assessment: 10/11/17 09:55 WITHDRAWAL SYMPTOM Plan: CONTINUE DETOX,PEN VEE K 500 MGS PO Q 6HRS FOR 7 DAYS
[2017-10-11] MEDS: NICOTINE 21 MG/24 HOURS TOPICAL PATCH TD SCH (10:18)
[2017-10-11] MEDS: PRENATAL VITAMINS W/ FOLIC ACID TABLET (FP) PO SCH (10:18)
[2017-10-11] MEDS: PANTOPRAZOLE 40 MG TABLET (FP) PO SCH (10:18)
[2017-10-11 10:49] LABS: HEMATOCRIT 39.6 % (35.4-49); HEMOGLOBIN 13.1 GM/dL (11.7-16.9); MCH 29.7 pg (25.7-33.7); MCHC 33.1 g/dl (32.0-35.9); MEAN CELL VOLUME 89.7 fl (80-96); MEAN PLT VOLUME 8.1 fl (7.5-11.1); PLATELET COUNT 134 K/MM3 (134-434); RBC 4.42 M/mm3 (4.00-5.60); RDW 12.6 % (11.9-15.9); WHITE BLOOD COUNT 4.6 K/mm3 (4.0-10.0)
[2017-10-11 11:21] LABS: ALBUMIN 3.7 g/dl (3.4-5.0); ANION GAP 8 (8-16); BLOOD UREA NITROGEN 17 mg/dL (7-18); CALCIUM 8.1 mg/dL (8.5-10.1); CHLORIDE 108 mmol/L (98-107); CO2 27 mmol/L (21-32); GLUCOSE,RANDOM 79 mg/dL (74-106); SODIUM 143 mmol/L (136-145)
[2017-10-11 11:31] LABS: ALK PHOS 60 U/L (45-117); BILIRUBIN,TOTAL 0.4 mg/dL (0.2-1.0); CREATININE 0.7 mg/dL (0.7-1.3); SGOT/AST 10 U/L (15-37); SGPT/ALT 21 U/L (12-78); TOT PROT 5.8 g/dl (6.4-8.2)
[2017-10-11] MEDS: PENICILLIN V POTASSIUM 500 MG TABLET PO SCH ×2 (12:25→17:33)
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
[2017-10-11] MEDS: traZODone HCL 50 MG TABLET (FP) PO SCH (21:07)
[2017-10-11] MEDS: THIAMINE HCL 100 MG TABLET (FP) PO SCH (21:07)
[2017-10-11] MEDS: QUEtiapine FUMARATE 200 MG TABLET PO SCH (21:07)
[2017-10-12] MEDS: PENICILLIN V POTASSIUM 500 MG TABLET PO SCH ×5 (00:39→23:18)
[2017-10-12] MEDS: chlordiazePOXIDE HCL 25 MG CAPSULE PO SCH ×3 (06:57→18:20)
[2017-10-12] MEDS ORDERED: SERTRALINE HCL 50 MG TABLET (FP) PO SCH (10:00)
--- NOTE | 2017-10-12 10:05 | PN ---
S CIWA - CIWA Score Nausea/Vomitin-Mild Nausea/No Vomiting Muscle Tremors: 3 Anxiety: 3 Agitation: 3 Paroxysmal Sweats: 3 Orientation: 0-Oriented Tacttile Disturbances: 0-None Auditory Disturbances: 0-None Visual Disturbances: 0-None Headache: 0-None Present CIWA-Ar Total Score: 13 S Progress Note (SOAP) Subjective: sweat tremor anxiety restlessness Objective: 10/12/17 10:06 Vital Signs Temperature 98.1 F 10/12/17 06:17 Pulse Rate 57 L 10/12/17 06:17 Respiratory Rate 16 10/12/17 06:17 Blood Pressure 95/62 10/12/17 06:17 O2 Sat by Pulse Oximetry (%) Laboratory Last Values WBC 4.6 K/mm3 (4.0-10.0) 10/11/17 07:50 RBC 4.42 M/mm3 (4.00-5.60) 10/11/17 07:50 Hgb 13.1 GM/dL (11.7-16.9) 10/11/17 07:50 Hct 39.6 % (35.4-49) 10/11/17 07:50 MCV 89.7 fl (80-96) 10/11/17 07:50 MCH 29.7 pg (25.7-33.7) 10/11/17 07:50 MCHC 33.1 g/dl (32.0-35.9) 10/11/17 07:50 RDW 12.6 % (11.9-15.9) 10/11/17 07:50 Plt Count 134 K/MM3 (134-434) 10/11/17 07:50 MPV 8.1 fl (7.5-11.1) 10/11/17 07:50 Sodium 143 mmol/L (136-145) 10/11/17 07:50 Potassium 4.0 mmol/L (3.5-5.1) 10/11/17 07:50 Chloride 108 mmol/L (98-107) H 10/11/17 07:50 Carbon Dioxide 27 mmol/L (21-32) 10/11/17 07:50 Anion Gap 8 (8-16) 10/11/17 07:50 BUN 17 mg/dL (7-18) 10/11/17 07:50 Creatinine 0.7 mg/dL (0.7-1.3) D 10/11/17 07:50 Creat Clearance w eGFR > 60 (>60) 10/11/17 07:50 Random Glucose 79 mg/dL (74-106) 10/11/17 07:50 Calcium 8.1 mg/dL (8.5-10.1) L 10/11/17 07:50 Total Bilirubin 0.4 mg/dL (0.2-1.0) 10/11/17 07:50 AST 10 U/L (15-37) L D 10/11/17 07:50 ALT 21 U/L (12-78) D 10/11/17 07:50 Alkaline Phosphatase 60 U/L (45-117) 10/11/17 07:50 Total Protein 5.8 g/dl (6.4-8.2) L 10/11/17 07:50 Albumin 3.7 g/dl (3.4-5.0) 10/11/17 07:50 Urine Color Yellow 10/10/17 22:41 Urine Appearance Cloudy 10/10/17 22:41 Urine pH 7.0 (5.0-8.0) 10/10/17 22:41 Ur Specific [place] 1.017 (1.001-1.035) 10/10/17 22:41 Urine Protein Negative (NEGATIVE) 10/10/17 22:41 Urine Glucose (UA) Negative (NEGATIVE) 10/10/17 22:41 Urine Ketones Negative (NEGATIVE) 10/10/17 22:41 Urine Blood Negative (NEGATIVE) 10/10/17 22:41 Urine Nitrite Negative (NEGATIVE) 10/10/17 22:41 Urine Bilirubin Negative (NEGATIVE) 10/10/17 22:41 Urine Urobilinogen Negative mg/dL (0.2-1.0) 10/10/17 22:41 Ur Leukocyte Esterase Negative (NEGATIVE) 10/10/17 22:41 RPR Titer Nonreactive (NONREACTIVE) 10/11/17 07:50 Hepatitis C Antibody 0.1 s/co ratio (0.0-0.9) 10/11/17 07:50 HIV 1&2 Antibody Screen Negative 10/11/17 07:50 HIV P24 Antigen Negative 10/11/17 07:50 lab noted Assessment: 10/12/17 10:06 withdrawal sx Plan: continue detox increase oral fluid
[2017-10-12] MEDS: PRENATAL VITAMINS W/ FOLIC ACID TABLET (FP) PO SCH (10:28)
[2017-10-12] MEDS: PANTOPRAZOLE 40 MG TABLET (FP) PO SCH (10:28)
[2017-10-12] MEDS: NICOTINE 21 MG/24 HOURS TOPICAL PATCH TD SCH (10:29)
--- NOTE | 2017-10-12 13:17 | EKG ---
Test Reason : Blood Pressure : / mmHG Vent. Rate : 061 BPM Atrial Rate : 061 BPM P-R Int : 160 ms QRS Dur : 094 ms QT Int : 404 ms P-R-T Axes : 052 -09 038 degrees QTc Int : 406 ms NORMAL SINUS RHYTHM INCOMPLETE RIGHT BUNDLE BRANCH BLOCK ABNORMAL ECG WHEN COMPARED WITH ECG OF 19-NOV-2016 23:34, QRS AXIS SHIFTED RIGHT CLINICAL CORRELATION IS RECOMMENDED BASELINE ARTIFACT Confirmed by JESUS TRAN, ABDIAZIZ ([id number]) on 10/12/2017 1:17:11 PM Referred By: Confirmed By:ABDIAZIZ LEE MD
[2017-10-12] MEDS: chlordiazePOXIDE HCL 25 MG CAPSULE PO PRN (15:12)
[2017-10-12] MEDS: MAG HYDROX/AL HYDROX/SIMETH 30 ML UNIT-DOSE CUP PO PRN (16:56)
[2017-10-12] MEDS: chlordiazePOXIDE 5 MG CAPSULE PO SCH (22:32)
[2017-10-12] MEDS: THIAMINE HCL 100 MG TABLET (FP) PO SCH (22:32)
[2017-10-12] MEDS: QUEtiapine FUMARATE 200 MG TABLET PO SCH (22:32)
[2017-10-12] MEDS: traZODone HCL 50 MG TABLET (FP) PO SCH (22:35)
[2017-10-13] MEDS: chlordiazePOXIDE 5 MG CAPSULE PO SCH (05:18)
[2017-10-13] MEDS: PENICILLIN V POTASSIUM 500 MG TABLET PO SCH (05:18)
[2017-10-13 06:12] VITALS: TEMP 97.3
--- NOTE | 2017-10-13 08:23 | DS ---
[facility] Detox Discharge Summary Admission Date: 10/10/17 Discharge Date: 10/13/17 - History Present History: Alcohol Dependence, Cannabis Dependence, Cocaine Dependence Additional Comments: FOLLOW UP WITH AFTER CARE PROGRAM ARRANGEMENT Pertinent Past History: GERD NICOTINE DEPENDENCE - Physical Exam Results Vital Signs: Vital Signs Temperature 97.3 F L 10/13/17 06:11 Pulse Rate 61 10/13/17 06:11 Respiratory Rate 16 10/13/17 06:11 Blood Pressure 106/71 10/13/17 06:11 O2 Sat by Pulse Oximetry (%) Pertinent Admission Physical Exam Findings: WITHDRAWAL SYMPTOM AND FINDING - Treatment Hospital Course: Detox Protocol Followed, Detoxed Safely, Responded well, Discharged Condition Good Patient has Accepted a Rehab Referral to: DECLINED - Medication Discharge Medications: Ambulatory Orders Sertraline HCl [Zoloft -] 100 mg PO DAILY #30 tablet 08/25/15 Sertraline HCl [Zoloft] 100 mg PO DAILY #30 tablet 08/23/16 Pantoprazole Sodium 1 tab PO DAILY 10/10/17 Quetiapine Fumarate [Seroquel -] 200 mg PO BID 10/10/17 Trazodone HCl [Desyrel -] 200 mg PO HS 10/10/17 - Diagnosis (1) Alcohol dependence with uncomplicated withdrawal Current Visit: Yes Status: Acute (2) Cocaine dependence, uncomplicated Current Visit: Yes Status: Acute (3) Low back pain Current Visit: No Status: Chronic Qualifiers: Back pain laterality: unspecified Sciatica presence: unspecified whether sciatica present (4) Nicotine dependence Current Visit: Yes Status: Acute Qualifiers: Nicotine product type: cigarettes Substance use status: in withdrawal Qualified Code(s): F17.213 - Nicotine dependence, cigarettes, with withdrawal (5) Cannabis dependence Current Visit: Yes Status: Acute (6) Gingivitis Current Visit: No Status: Acute (7) Insomnia Current Visit: Yes Status: Chronic Qualifiers: Insomnia type: unspecified Qualified Code(s): G47.00 - Insomnia, unspecified - AMA Did Patient Leave Against Medical Advice: No
--- NOTE | 2017-10-13 08:27 | PN ---
[facility] Progress Note Note: PATIENT IS STABLE FOR DISCHARGE TODAY,HAS COURT APPOINTMENT,FOLLOW UP WITH AFTER CARE PROGRAM ARRANGEMENT
[2017-10-13 10:08] VITALS: BP 117/74; PULSE 73
[2017-10-13] MEDS ORDERED: chlordiazePOXIDE HCL 10 MG CAPSULE PO SCH (23:00)
== END 2017-10-13 09:07 | disposition home or self-care (01) | DRG 774 ==
LOC: YASAS 17:27 → Y6N 20:58
PROVIDERS: ADMIT Internal Medicine; ATTEND Internal Medicine
PROC: HZ2ZZZZ Detoxification Services for Substance Abuse Treatment (ICD-10-PCS; principal; 2017-10-10)
DX: F10.230 Alcohol dependence with withdrawal, uncomplicated (principal); F14.20 Cocaine dependence, uncomplicated; F12.20 Cannabis dependence, uncomplicated; F17.213 Nicotine dependence, cigarettes, with withdrawal; M54.5 Low back pain; G89.29 Other chronic pain; K05.10 Chronic gingivitis, plaque induced; G47.00 Insomnia, unspecified; K21.9 Gastro-esophageal reflux disease without esophagitis
CPT/HCPCS: 36415; 80053; 81003; 85027; 86593; 86803; 87389; 93005; 93010

== ENCOUNTER 2017-11-30 23:52 | Inpatient (IN) | payer OTHER ==
--- NOTE | 2017-12-01 00:02 | PN ---
[facility] Progress Note Note: [facility] History and Physical Patient Name: AALIYAH CARPIO Date of : 65 Patient Status: Referred Attending Provider: Jared Jacinto Date: 11/30/17 23:04 Initialization Date: 11/30/17 23:04 CIWA Score - CIWA Score Nausea/Vomitin-Mild Nausea/No Vomiting Muscle Tremors: 4-Moderate,w/Arms Extend Anxiety: 4-Mod. Anxious/Guarded Agitation: 4-Moderately Restless Paroxysmal Sweats: 2 ([place]) Orientation: 1-Uncertain about Date Tacttile Disturbances: 0-None Auditory Disturbances: 0-None Visual Disturbances: 0-None Headache: 3-Moderate CIWA-Ar Total Score: 19 Admission ROS S - HPI Chief Complaint: " I DONT WANT TO DRINK ANYMORE" Allergies/Adverse Reactions: Allergies Allergy/AdvReac Type Severity Reaction Status Date / Time No Known Allergies Allergy Verified 11/30/17 23:04 History of Present Illness: 51 Y.O. MALE WITH ALCOHOL DEPENDENCE HERE FOR DETOX TXMENT. CLIENT IS KNOW TO THIS PROGRAM. STATES WAS HERE 3 MONTHS AGO .DENIES ANY DETOX SINCE THEN. SELF REFERRED. HE IS CURRENTLY ON PROBATION. DENIES ANY SIGNIFICANT PERIOD OF CLEAN TIME Exam Limitations: No Limitations - Ebola screening Have you traveled outside of the country in the last 21 days: No (N) Have you had contact with anyone from an Ebola affected area: No Do you have a fever: No - Review of Systems Constitutional: Chills, Loss of Appetite, Malaise, Night Sweats, Changes in sleep EENT: reports: Dental Problems (HX/O GUM INFECTION) Respiratory: reports: No Symptoms reported Cardiac: reports: No Symptoms Reported GI: reports: Nausea, Poor Appetite, Poor Fluid Intake : reports: No Symptoms Reported Musculoskeletal: reports: No Symptoms Reported Integumentary: reports: No Symptoms Reported Neuro: reports: Tremors (R/T ALCOHOL) Endocrine: reports: No Symptoms Reported Hematology: reports: No Symptoms Reported Psychiatric: reports: Anxious, Depressed Other Systems: Reviewed and Negative Patient History - Patient Medical History Hx Anemia: No Hx Asthma: No Hx Chronic Obstructive Pulmonary Disease (COPD): No Hx Cancer: No Hx Cardiac Disorders: No Hx Congestive Heart Failure: No Hx Hypertension: No Hx Hypercholesterolemia: No Hx Pacemaker: No HX Cerebrovascular Accident: No Hx Seizures: No Hx Dementia: No Hx Diabetes: No Hx Gastrointestinal Disorders: No Hx Liver Disease: No Hx Genitourinary Disorders: No Hx Sexually Transmitted Disorders: No Hx Renal Disease (ESRD): No Hx Thyroid Disease: No Hx Human Immunodeficiency Virus (HIV): No Hx Hepatitis C: No Hx Depression: Yes Hx Suicide Attempt: No Hx Bipolar Disorder: Yes Hx Schizophrenia: No Other Medical History: ANXIETY - Patient Surgical History Past Surgical History: No - PPD History Previous Implant?: Yes Documented Results: Positive w/proof Implanted On Prior [facility] Admission?: Yes PPD to be Administered?: No - Smoking Cessation Smoking history: Current every day smoker Have you smoked in the past 12 months: Yes Aproximately how many cigarettes per day: 20 Cigars Per Day: 0 Hx Chewing Tobacco Use: No Initiated information on smoking cessation: Yes 'Breaking Loose' booklet given: 11/30/17 - Substance & Tx. History Hx Alcohol Use: Yes Hx Substance Use: Yes Substance Use Type: Alcohol Hx Substance Use Treatment: Yes ([facility]) - Substances Abused LIQUOR Route: Oral Frequency: Daily Amount used: 2 PINTS Age of first use: 30 Date of Last Use: 11/30/17 Family Disease History - Family Disease History Family History: Denies Admission Physical Exam [facility] - Physical General Appearance: Yes: Appropriately Dressed, Mild Distress, Tremorous, Anxious HEENTM: Yes: EOMI, Normocephalic, TOMMY, Pharynx Normal, Other (POOR DENTITION) Respiratory: Yes: Chest Non-Tender, Lungs Clear, Normal Breath Sounds, No Respiratory Distress, No Accessory Muscle Use Neck: Yes: No masses,lesions,Nodules, Supple, Trachea in good position Breast: Yes: Breast Exam Deferred Cardiology: Yes: Regular Rhythm, Regular Rate, S1, S2 Abdominal: Yes: Normal Bowel Sounds, Non Tender, Flat, Soft Genitourinary: Yes: Within Normal Limits Back: Yes: Normal Inspection Musculoskeletal: Yes: full range of Motion, Gait Steady Extremities: Yes: Normal Range of Motion, Non-Tender, Tremors Neurological: Yes: Fully Oriented, Alert, Motor Strength 5/5 Integumentary: Yes: Normal Color, Dry, Warm Lymphatic: Yes: Within Normal Limits - Diagnostic (1) Alcohol dependence with uncomplicated withdrawal Current Visit: Yes Status: Acute (2) Nicotine dependence Current Visit: Yes Status: Acute Qualifiers: Nicotine product type: cigarettes Substance use status: uncomplicated Qualified Code(s): F17.210 - Nicotine dependence, cigarettes, uncomplicated (3) History of positive PPD Current Visit: Yes Status: Acute Cleared for Admission [facility] - Detox or Rehab [facility] Level of Care: Medically Managed Detox Regimen/Protocol: Librium Claeared for Rehab Admission: No
[2017-12-01] MEDS ORDERED: MAG HYDROX/AL HYDROX/SIMETH 30 ML UNIT-DOSE CUP PO PRN (00:03)
[2017-12-01] MEDS ORDERED: MAGNESIUM CITRATE 300 ML BOTTLE PO PRN (00:03)
[2017-12-01] MEDS ORDERED: IBUPROFEN 400 MG TABLET (FP) PO PRN (00:03)
[2017-12-01] MEDS ORDERED: MENTHOL/PHENOL 1 EACH UD MM PRN (00:03)
[2017-12-01] MEDS ORDERED: guaiFENesin/D-METHORPHAN HB 10 ML UNIT-DOSE CUPS PO PRN (00:03)
[2017-12-01] MEDS ORDERED: P-EPHED 60MG/TRIPROLIDI 2.5MG TABLET PO PRN (00:03)
[2017-12-01] MEDS ORDERED: chlordiazePOXIDE HCL 25 MG CAPSULE PO PRN (00:03)
[2017-12-01] MEDS ORDERED: LOPERAMIDE HCL 2 MG CAPSULE PO PRN (00:03)
[2017-12-01] MEDS ORDERED: ACETAMINOPHEN 325 MG TABLET (FP) PO PRN (00:03)
[2017-12-01] MEDS ORDERED: MAGNESIUM HYDROX 2400MG/30ML ORAL SUSPENSION 30 ML CUP PO PRN (00:03)
[2017-12-01] MEDS ORDERED: NICOTINE POLACRILEX 4 MG GUM BC PRN (00:03)
[2017-12-01 00:04] VITALS: BMI 25.1
[2017-12-01] MEDS ORDERED: MELATONIN 5 MG TABLETS PO PRN (00:09)
[2017-12-01 00:45] LABS: URINE APPEARANCE CLEAR; URINE BILIRUBIN NEGATIVE (<2.0 mg/dL); URINE BLOOD NEGATIVE (NEGATIVE); URINE COLOR YELLOW; URINE GLUCOSE (UA) NEGATIVE (NEGATIVE); URINE KETONE NEGATIVE (NEGATIVE); URINE LEUK ESTERASE NEGATIVE (NEGATIVE); URINE NITRITE NEGATIVE (NEGATIVE); URINE PROTEIN NEGATIVE (NEGATIVE); URINE UROBILINOGEN NEGATIVE mg/dL (0.2-1.0)
[2017-12-01] MEDS: chlordiazePOXIDE HCL 25 MG CAPSULE PO SCH ×4 (05:45→22:15)
[2017-12-01] MEDS ORDERED: LIDOCAINE VISCOUS 2% ORAL/TOP 20 ML UNIT-DOSE CUP MM PRN (09:03)
--- NOTE | 2017-12-01 09:05 | EKG ---
Test Reason : Blood Pressure : / mmHG Vent. Rate : 075 BPM Atrial Rate : 075 BPM P-R Int : 164 ms QRS Dur : 106 ms QT Int : 400 ms P-R-T Axes : 057 -16 059 degrees QTc Int : 446 ms NORMAL SINUS RHYTHM INCOMPLETE RIGHT BUNDLE BRANCH BLOCK BORDERLINE ECG WHEN COMPARED WITH ECG OF 10-OCT-2017 23:43, CRITERIA FOR SEPTAL INFARCT ARE NO LONGER PRESENT Confirmed by LASHAUN ISRAEL MD ([id number]) on 12/01/2017 9:05:48 AM Referred By: Confirmed By:LASHAUN ISRAEL MD
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
[2017-12-01] MEDS: PANTOPRAZOLE 40 MG TABLET (FP) PO SCH (10:25)
[2017-12-01] MEDS: PRENATAL VITAMINS W/ FOLIC ACID TABLET (FP) PO SCH (10:25)
[2017-12-01] MEDS: BACITRACIN 0.9 GM PACKET TP SCH ×2 (10:27→22:15)
[2017-12-01] MEDS: NICOTINE 21 MG/24 HOURS TOPICAL PATCH TD SCH (10:27)
--- NOTE | 2017-12-01 11:42 | PN ---
[facility] CIWA - CIWA Score Nausea/Vomitin-No Nausea/No Vomiting Muscle Tremors: 3 Anxiety: 5 Agitation: 3 Paroxysmal Sweats: 3 Orientation: 0-Oriented Tacttile Disturbances: 3-Moderate Itch/Numb/Burn Auditory Disturbances: 0-None Visual Disturbances: 1-Very Mild Sensitivity Headache: 0-None Present CIWA-Ar Total Score: 18 BHS Progress Note (SOAP) Subjective: Sweating, Tremors, Diarrhea, Anxious. Patient reports pain in mouth X approx. 2 days. Patient reports history of dental infections (for which he has been treated with Penicillin V-K) and that he needs to get to see his dentist soon for necessary dental work to be done. Objective: PATIENT A & O X 3, OBSERVED AMBULATING ON UNIT. NO ACUTE DISTRESS. NO ERYTHEMA OR SWELLING NOTED IN MOUTH. 12/01/17 11:39 Vital Signs Temperature 98.6 F 12/01/17 09:27 Pulse Rate 69 12/01/17 09:27 Respiratory Rate 18 12/01/17 09:27 Blood Pressure 107/58 12/01/17 09:27 O2 Sat by Pulse Oximetry (%) Laboratory Tests 12/01/17 00:02 Urine Color Yellow Urine Appearance Clear Urine pH 5.0 D Ur Specific [place] 1.018 Urine Protein Negative Urine Glucose (UA) Negative Urine Ketones Negative Urine Blood Negative Urine Nitrite Negative Urine Bilirubin Negative Urine Urobilinogen Negative Ur Leukocyte Esterase Negative UA RESULTS NOTED. ADMISSION CBC, CMP, AND RPR RESULTS PENDING. 12/01/17 11:40 Assessment: 12/01/17 11:40 WITHDRAWAL SYMPTOMS. POSSIBLE DENTAL INFECTION. Plan: CONTINUE DETOX. INCREASE DAILY PO FLUID INTAKE. PENICILLIN V-K, 500 MG PO TID X 7 DAYS ORDERED. VISCOUS LIDOCAINE MOUTHWASH FOR ORAL DISCOMFORT. PRN IBUPROFEN FOR DENTAL PAIN.
[2017-12-01] MEDS: PENICILLIN V POTASSIUM 500 MG TABLET PO SCH ×2 (15:25→22:15)
[2017-12-01] MEDS: SERTRALINE HCL 50 MG TABLET (FP) PO SCH (15:25)
[2017-12-01] MEDS ORDERED: MELATONIN 5 MG TABLETS PO SCH (22:00)
[2017-12-01] MEDS: THIAMINE HCL 100 MG TABLET (FP) PO SCH (22:15)
[2017-12-01] MEDS: QUEtiapine FUMARATE 200 MG TABLET PO SCH (22:15)
[2017-12-01] MEDS: traZODone HCL 100 MG TABLET (FP) PO SCH (22:15)
[2017-12-02] MEDS: chlordiazePOXIDE HCL 25 MG CAPSULE PO SCH ×4 (05:37→22:33)
[2017-12-02] MEDS: PENICILLIN V POTASSIUM 500 MG TABLET PO SCH ×3 (05:37→22:34)
[2017-12-02 10:10] LABS: HEMATOCRIT 40.6 % (35.4-49); HEMOGLOBIN 13.9 GM/dL (11.7-16.9); MCH 30.5 pg (25.7-33.7); MCHC 34.1 g/dl (32.0-35.9); MEAN CELL VOLUME 89.5 fl (80-96); MEAN PLT VOLUME 8.1 fl (7.5-11.1); PLATELET COUNT 152 K/MM3 (134-434); RBC 4.54 M/mm3 (4.00-5.60); RDW 12.9 % (11.9-15.9); WHITE BLOOD COUNT 4.9 K/mm3 (4.0-10.0)
[2017-12-02] MEDS: PRENATAL VITAMINS W/ FOLIC ACID TABLET (FP) PO SCH (10:18)
[2017-12-02] MEDS: SERTRALINE HCL 50 MG TABLET (FP) PO SCH (10:18)
[2017-12-02] MEDS: PANTOPRAZOLE 40 MG TABLET (FP) PO SCH (10:18)
[2017-12-02] MEDS: BACITRACIN 0.9 GM PACKET TP SCH ×2 (10:18→22:33)
[2017-12-02] MEDS: NICOTINE 21 MG/24 HOURS TOPICAL PATCH TD SCH (10:18)
[2017-12-02 10:20] LABS: CHLORIDE 109 mmol/L (98-107); SGOT/AST 8 U/L (15-37); SGPT/ALT 17 U/L (12-78); SODIUM 141 mmol/L (136-145)
[2017-12-02 10:27] LABS: ALBUMIN 3.7 g/dl (3.4-5.0); ALK PHOS 57 U/L (45-117); ANION GAP 6 (8-16); BILIRUBIN,TOTAL 0.3 mg/dL (0.2-1.0); BLOOD UREA NITROGEN 15 mg/dL (7-18); CALCIUM 8.1 mg/dL (8.5-10.1); CO2 26 mmol/L (21-32); CREATININE 0.8 mg/dL (0.7-1.3); GLUCOSE,RANDOM 85 mg/dL (74-106); TOT PROT 5.6 g/dl (6.4-8.2)
--- NOTE | 2017-12-02 11:09 | PN ---
S CIWA - CIWA Score Nausea/Vomitin-No Nausea/No Vomiting Muscle Tremors: 3 Anxiety: 4-Mod. Anxious/Guarded Agitation: 2 Paroxysmal Sweats: 3 Orientation: 0-Oriented Tacttile Disturbances: 2-Mild Itch/Numbness/Burn Auditory Disturbances: 0-None Visual Disturbances: 2-Mild Sensitivity Headache: 0-None Present CIWA-Ar Total Score: 16 BHS Progress Note (SOAP) Subjective: Diarrhea, Sweating, Anxious, Fatigue, Tremors. Objective: PATIENT A & O X 3, OBSERVED AMBULATING ON UNIT. NO ACUTE DISTRESS. 12/02/17 11:06 Vital Signs Temperature 96.7 F L 12/02/17 09:26 Pulse Rate 63 12/02/17 09:26 Respiratory Rate 18 12/02/17 09:26 Blood Pressure 113/72 12/02/17 09:26 O2 Sat by Pulse Oximetry (%) Laboratory Tests 12/01/17 12/02/17 12/02/17 00:02 07:00 07:00 WBC 4.9 RBC 4.54 Hgb 13.9 Hct 40.6 MCV 89.5 MCH 30.5 MCHC 34.1 RDW 12.9 Plt Count 152 MPV 8.1 Sodium 141 Potassium 4.0 Chloride 109 H Carbon Dioxide 26 Anion Gap 6 L BUN 15 Creatinine 0.8 Creat Clearance w eGFR > 60 Random Glucose 85 Calcium 8.1 L Total Bilirubin 0.3 D AST 8 L ALT 17 Alkaline Phosphatase 57 Total Protein 5.6 L Albumin 3.7 Urine Color Yellow Urine Appearance Clear Urine pH 5.0 D Ur Specific [place] 1.018 Urine Protein Negative Urine Glucose (UA) Negative Urine Ketones Negative Urine Blood Negative Urine Nitrite Negative Urine Bilirubin Negative Urine Urobilinogen Negative Ur Leukocyte Esterase Negative LABS NOTED. RPR RESULT PENDING. 12/02/17 11:08 Assessment: 12/02/17 11:06 WITHDRAWAL SYMPTOMS. Plan: CONTINUE DETOX. INCREASE DAILY PO FLUID INTAKE.
[2017-12-02] MEDS: THIAMINE HCL 100 MG TABLET (FP) PO SCH (22:33)
[2017-12-02] MEDS: QUEtiapine FUMARATE 200 MG TABLET PO SCH (22:33)
[2017-12-02] MEDS: traZODone HCL 100 MG TABLET (FP) PO SCH (22:33)
[2017-12-03] MEDS: chlordiazePOXIDE 5 MG CAPSULE PO SCH ×4 (05:13→22:34)
[2017-12-03] MEDS: PENICILLIN V POTASSIUM 500 MG TABLET PO SCH ×3 (05:56→22:35)
[2017-12-03] MEDS: PANTOPRAZOLE 40 MG TABLET (FP) PO SCH (10:29)
[2017-12-03] MEDS: BACITRACIN 0.9 GM PACKET TP SCH ×2 (10:29→22:34)
[2017-12-03] MEDS: PRENATAL VITAMINS W/ FOLIC ACID TABLET (FP) PO SCH (10:29)
[2017-12-03] MEDS: NICOTINE 21 MG/24 HOURS TOPICAL PATCH TD SCH (10:29)
[2017-12-03] MEDS: SERTRALINE HCL 50 MG TABLET (FP) PO SCH (10:29)
--- NOTE | 2017-12-03 12:26 | PN ---
BHS Progress Note (SOAP) Subjective: Sweating, Fatigue. Objective: PATIENT A & O X 3. NO ACUTE DISTRESS. 12/03/17 12:24 Vital Signs Temperature 98.1 F 12/03/17 09:22 Pulse Rate 84 12/03/17 09:22 Respiratory Rate 18 12/03/17 09:22 Blood Pressure 114/80 12/03/17 09:22 O2 Sat by Pulse Oximetry (%) Laboratory Tests 12/01/17 12/02/17 12/02/17 00:02 07:00 07:00 WBC 4.9 RBC 4.54 Hgb 13.9 Hct 40.6 MCV 89.5 MCH 30.5 MCHC 34.1 RDW 12.9 Plt Count 152 MPV 8.1 Sodium 141 Potassium 4.0 Chloride 109 H Carbon Dioxide 26 Anion Gap 6 L BUN 15 Creatinine 0.8 Creat Clearance w eGFR > 60 Random Glucose 85 Calcium 8.1 L Total Bilirubin 0.3 D AST 8 L ALT 17 Alkaline Phosphatase 57 Total Protein 5.6 L Albumin 3.7 Urine Color Yellow Urine Appearance Clear Urine pH 5.0 D Ur Specific [place] 1.018 Urine Protein Negative Urine Glucose (UA) Negative Urine Ketones Negative Urine Blood Negative Urine Nitrite Negative Urine Bilirubin Negative Urine Urobilinogen Negative Ur Leukocyte Esterase Negative RPR Titer 12/02/17 07:00 WBC RBC Hgb Hct MCV MCH MCHC RDW Plt Count MPV Sodium Potassium Chloride Carbon Dioxide Anion Gap BUN Creatinine Creat Clearance w eGFR Random Glucose Calcium Total Bilirubin AST ALT Alkaline Phosphatase Total Protein Albumin Urine Color Urine Appearance Urine pH Ur Specific [place] Urine Protein Urine Glucose (UA) Urine Ketones Urine Blood Urine Nitrite Urine Bilirubin Urine Urobilinogen Ur Leukocyte Esterase RPR Titer Nonreactive labs noted. Assessment: 12/03/17 12:25 WITHDRAWAL SYMPTOMS. Plan: CONTINUE DETOX.
[2017-12-03] MEDS: traZODone HCL 100 MG TABLET (FP) PO SCH (22:34)
[2017-12-03] MEDS: QUEtiapine FUMARATE 200 MG TABLET PO SCH (22:34)
[2017-12-03] MEDS: THIAMINE HCL 100 MG TABLET (FP) PO SCH (22:34)
[2017-12-04] MEDS: PENICILLIN V POTASSIUM 500 MG TABLET PO SCH ×2 (05:20→13:33)
[2017-12-04] MEDS: chlordiazePOXIDE HCL 10 MG CAPSULE PO SCH ×2 (05:21→10:33)
[2017-12-04] MEDS: SERTRALINE HCL 50 MG TABLET (FP) PO SCH (10:32)
[2017-12-04] MEDS: PANTOPRAZOLE 40 MG TABLET (FP) PO SCH (10:32)
[2017-12-04] MEDS: BACITRACIN 0.9 GM PACKET TP SCH (10:32)
[2017-12-04] MEDS: NICOTINE 21 MG/24 HOURS TOPICAL PATCH TD SCH (10:32)
[2017-12-04] MEDS: PRENATAL VITAMINS W/ FOLIC ACID TABLET (FP) PO SCH (10:32)
--- NOTE | 2017-12-04 11:46 | PN ---
S Progress Note (SOAP) Subjective: Patient denies any current Detox symptoms and reports that he feeling well overall. Objective: PATIENT A & O X 3, OBSERVED AMBULATING ON UNIT. NO ACUTE DISTRESS. 12/04/17 16:50 Vital Signs Temperature 97.0 F L 12/04/17 13:27 Pulse Rate 67 12/04/17 13:27 Respiratory Rate 18 12/04/17 13:27 Blood Pressure 106/56 12/04/17 13:27 O2 Sat by Pulse Oximetry (%) Laboratory Tests 12/01/17 12/02/17 12/02/17 00:02 07:00 07:00 WBC 4.9 RBC 4.54 Hgb 13.9 Hct 40.6 MCV 89.5 MCH 30.5 MCHC 34.1 RDW 12.9 Plt Count 152 MPV 8.1 Sodium 141 Potassium 4.0 Chloride 109 H Carbon Dioxide 26 Anion Gap 6 L BUN 15 Creatinine 0.8 Creat Clearance w eGFR > 60 Random Glucose 85 Calcium 8.1 L Total Bilirubin 0.3 D AST 8 L ALT 17 Alkaline Phosphatase 57 Total Protein 5.6 L Albumin 3.7 Urine Color Yellow Urine Appearance Clear Urine pH 5.0 D Ur Specific [place] 1.018 Urine Protein Negative Urine Glucose (UA) Negative Urine Ketones Negative Urine Blood Negative Urine Nitrite Negative Urine Bilirubin Negative Urine Urobilinogen Negative Ur Leukocyte Esterase Negative RPR Titer 12/02/17 07:00 WBC RBC Hgb Hct MCV MCH MCHC RDW Plt Count MPV Sodium Potassium Chloride Carbon Dioxide Anion Gap BUN Creatinine Creat Clearance w eGFR Random Glucose Calcium Total Bilirubin AST ALT Alkaline Phosphatase Total Protein Albumin Urine Color Urine Appearance Urine pH Ur Specific [place] Urine Protein Urine Glucose (UA) Urine Ketones Urine Blood Urine Nitrite Urine Bilirubin Urine Urobilinogen Ur Leukocyte Esterase RPR Titer Nonreactive LABS NOTED. Assessment: 12/04/17 16:51 COMPLETION OF DETOX REGIMEN. Plan: PATIENT SCHEDULED FOR DISCHARGE FROM DETOX UNIT TODAY. PATIENT SCHEDULED TO GO ON TO [facility] ([facility] N[facility]Em[facility] FOR AFTERCARE.
[2017-12-04 13:29] VITALS: BP 106/56; PULSE 67; TEMP 97
--- NOTE | 2017-12-04 16:55 | DS ---
[facility] Detox Discharge Summary Admission Date: 11/30/17 Discharge Date: 12/04/17 - History Present History: Alcohol Dependence, Cocaine Dependence Additional Comments: [facility] ([facility]) FOR AFTERCARE. PATIENT WAS DISCHARGED FROM DETOX UNIT IN STABLE MEDICAL CONDITION. Pertinent Past History: Depression, Insomnia, GERD, Dental Infection, Schizoaffective Disorder, Nicotine Dependence, History of Positive PPD. - Physical Exam Results Vital Signs: Vital Signs Temperature 97.0 F L 12/04/17 13:27 Pulse Rate 67 12/04/17 13:27 Respiratory Rate 18 12/04/17 13:27 Blood Pressure 106/56 12/04/17 13:27 O2 Sat by Pulse Oximetry (%) Pertinent Admission Physical Exam Findings: WITHDRAWAL SYMPTOMS. Laboratory Tests 12/01/17 12/02/17 12/02/17 00:02 07:00 07:00 WBC 4.9 RBC 4.54 Hgb 13.9 Hct 40.6 MCV 89.5 MCH 30.5 MCHC 34.1 RDW 12.9 Plt Count 152 MPV 8.1 Sodium 141 Potassium 4.0 Chloride 109 H Carbon Dioxide 26 Anion Gap 6 L BUN 15 Creatinine 0.8 Creat Clearance w eGFR > 60 Random Glucose 85 Calcium 8.1 L Total Bilirubin 0.3 D AST 8 L ALT 17 Alkaline Phosphatase 57 Total Protein 5.6 L Albumin 3.7 Urine Color Yellow Urine Appearance Clear Urine pH 5.0 D Ur Specific [place] 1.018 Urine Protein Negative Urine Glucose (UA) Negative Urine Ketones Negative Urine Blood Negative Urine Nitrite Negative Urine Bilirubin Negative Urine Urobilinogen Negative Ur Leukocyte Esterase Negative RPR Titer 12/02/17 07:00 WBC RBC Hgb Hct MCV MCH MCHC RDW Plt Count MPV Sodium Potassium Chloride Carbon Dioxide Anion Gap BUN Creatinine Creat Clearance w eGFR Random Glucose Calcium Total Bilirubin AST ALT Alkaline Phosphatase Total Protein Albumin Urine Color Urine Appearance Urine pH Ur Specific [place] Urine Protein Urine Glucose (UA) Urine Ketones Urine Blood Urine Nitrite Urine Bilirubin Urine Urobilinogen Ur Leukocyte Esterase RPR Titer Nonreactive LABS NOTED. - Treatment Hospital Course: Detox Protocol Followed, Detoxed Safely, Responded well, Discharged Condition Good, Rehab Referral Accepted Patient has Accepted a Rehab Referral to: [facility] ([facility]) . - Medication Discharge Medications: Ambulatory Orders Quetiapine Fumarate [Seroquel -] 200 mg PO BID 10/10/17 Pantoprazole Sodium 1 tab PO DAILY #30 tablet. 10/13/17 Quetiapine Fumarate [Seroquel -] 200 mg PO BID #60 tablet 12/03/17 Sertraline HCl [Zoloft -] 100 mg PO DAILY #30 tablet 12/03/17 traZODone HCL [Desyrel -] 100 mg PO HS #30 tablet 12/03/17 - Diagnosis (1) Dental infection Status: Acute (2) Alcohol dependence with uncomplicated withdrawal Status: Acute (3) Nicotine dependence Status: Acute Qualifiers: Nicotine product type: cigarettes Substance use status: uncomplicated Qualified Code(s): F17.210 - Nicotine dependence, cigarettes, uncomplicated (4) History of positive PPD Status: Acute (5) Cocaine dependence, uncomplicated Status: Acute (6) PPD positive Status: Chronic (7) Schizoaffective disorder Status: Chronic Qualifiers: Schizoaffective disorder type: unspecified Qualified Code(s): F25.9 - Schizoaffective disorder, unspecified (8) Insomnia Status: Chronic Qualifiers: Insomnia type: unspecified Qualified Code(s): G47.00 - Insomnia, unspecified - AMA Did Patient Leave Against Medical Advice: No
== END 2017-12-04 13:37 | disposition other institution (70) | DRG 774 ==
LOC: YASAS 23:52 → Y3N 23:55
PROVIDERS: ADMIT Internal Medicine; ATTEND Internal Medicine
PROC: HZ2ZZZZ Detoxification Services for Substance Abuse Treatment (ICD-10-PCS; principal; 2017-11-30)
DX: F10.230 Alcohol dependence with withdrawal, uncomplicated (principal); F14.20 Cocaine dependence, uncomplicated; F17.210 Nicotine dependence, cigarettes, uncomplicated; F25.9 Schizoaffective disorder, unspecified; F32.9 Major depressive disorder, single episode, unspecified; G47.00 Insomnia, unspecified; R76.11 Nonspecific reaction to tuberculin skin test without active tuberculosis; K04.7 Periapical abscess without sinus; K21.9 Gastro-esophageal reflux disease without esophagitis
CPT/HCPCS: 36415; 71046-TC-FY; 80053; 81003; 85027; 86593; 93005; 93010

== ENCOUNTER 2017-12-04 14:02 | Inpatient (IN) | payer OTHER ==
[~2017-12-04 14:02] MED LIST: IBUPROFEN 400 MG TABLET (FP) PO PRN; LIDOCAINE VISCOUS 2% ORAL/TOP 20 ML UNIT-DOSE CUP MM PRN; LOPERAMIDE HCL 2 MG CAPSULE PO PRN; MAG HYDROX/AL HYDROX/SIMETH 30 ML UNIT-DOSE CUP PO PRN; MAGNESIUM CITRATE 300 ML BOTTLE PO PRN; MAGNESIUM HYDROX 2400MG/30ML ORAL SUSPENSION 30 ML CUP PO PRN; MENTHOL/PHENOL 1 EACH UD MM PRN; NICOTINE POLACRILEX 4 MG GUM BUC PRN; P-EPHED 60MG/TRIPROLIDI 2.5MG TABLET PO PRN; guaiFENesin/D-METHORPHAN HB 10 ML UNIT-DOSE CUPS PO PRN
[2017-12-04] MEDS: PENICILLIN V POTASSIUM 500 MG TABLET PO SCH ×2 (15:04→22:16)
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
[2017-12-04] MEDS ORDERED: hydrOXYzine PAMOATE 50 MG CAPSULE (FP) PO PRN (15:48)
--- NOTE | 2017-12-04 16:50 | HP ---
[facility] Rehab Assess/Revision - Admission History Admitted to Rehab from: [facility] Date of Admission to Rehab: 12/04/2017 - Vital signs Vital Signs: Vital Signs Period Temp Pulse Resp BP Sys/Willis Pulse Ox Last 24 Hr 97.6 F 70 18 107/70 - Findings Detox History & Physical reviewed: Yes Concur with findings: Yes Comments/Additional Findings: PATIENT'S MEDICAL / MEDICATION HISTORY REVIEWED PRIOR TO DISCHARGE FROM DETOX UNIT. PATIENT WAS DISCHARGED FROM DETOX UNIT TO BE TAKEN FROM DETOX UNIT TO REHAB UNIT IN STABLE MEDICAL CONDITION. Inpatient Rehab Admission - Initial Determination Are CD services needed?: Yes Free of communicable disease: Yes Not in need of hospitalization: Yes - Rehab Admission Criteria Previous failed treatment: Yes Comorbidities: Yes Patient is meeting Inpatient Rehab admission criteria:: Yes
[2017-12-04] MEDS: ACETAMINOPHEN 325 MG TABLET (FP) PO PRN (19:55)
[2017-12-04] MEDS ORDERED: MELATONIN 5 MG TABLETS PO PRN (22:00)
[2017-12-04] MEDS: QUEtiapine FUMARATE 200 MG TABLET PO SCH (22:16)
[2017-12-04] MEDS: THIAMINE HCL 100 MG TABLET (FP) PO SCH (22:16)
[2017-12-04] MEDS: traZODone HCL 50 MG TABLET (FP) PO SCH (22:16)
[2017-12-05] MEDS: PENICILLIN V POTASSIUM 500 MG TABLET PO SCH ×3 (06:30→21:05)
[2017-12-05] MEDS ORDERED: QUEtiapine FUMARATE 100 MG TABLET (FP) PO SCH (10:00)
[2017-12-05] MEDS ORDERED: PANTOPRAZOLE 40 MG TABLET (FP) PO SCH ×2 (10:00)
[2017-12-05] MEDS ORDERED: PRENATAL VITAMINS W/ FOLIC ACID TABLET (FP) PO SCH (10:00)
[2017-12-05] MEDS ORDERED: SERTRALINE HCL 50 MG TABLET (FP) PO SCH (10:00)
[2017-12-05] MEDS: NICOTINE 21 MG/24 HOURS TOPICAL PATCH TD SCH ×2 (10:09→10:13)
[2017-12-05] MEDS: ACETAMINOPHEN 325 MG TABLET (FP) PO PRN ×2 (12:01→15:11)
[2017-12-05] MEDS: traZODone HCL 50 MG TABLET (FP) PO SCH (21:05)
[2017-12-05] MEDS: QUEtiapine FUMARATE 200 MG TABLET PO SCH (21:05)
[2017-12-05] MEDS: THIAMINE HCL 100 MG TABLET (FP) PO SCH (21:05)
[2017-12-06] MEDS: PENICILLIN V POTASSIUM 500 MG TABLET PO SCH (06:10)
[2017-12-06 06:51] VITALS: BP 102/61; PULSE 71; TEMP 97.4
--- NOTE | 2017-12-06 10:03 | PN ---
[facility] Progress Note Note: Psychiatry Attending's supervisor pumping station note : Notified at 8:00 am. Patient left unit. Reason : argument with peer. Mr Cespedes had refused to wait for psychiatrist. See staff's notes for details.
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
== END 2017-12-06 08:00 | disposition left against medical advice (07) | DRG 770 ==
LOC: YASAS 14:02 → Y5N 14:03
PROVIDERS: ADMIT Psychiatry & Neurology Psychiatry; ATTEND Psychiatry & Neurology Psychiatry
PROC: HZ42ZZZ Group Counseling for Substance Abuse Treatment, Cognitive-Behavioral (ICD-10-PCS; principal; 2017-12-04)
DX: F10.20 Alcohol dependence, uncomplicated (principal); F17.210 Nicotine dependence, cigarettes, uncomplicated; F25.9 Schizoaffective disorder, unspecified
CPT/HCPCS: 82962

== ENCOUNTER 2018-02-21 16:48 | Inpatient (IN) | payer OTHER ==
[2018-02-21 19:49] VITALS: BMI 25.9
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
[2018-02-21] MEDS ORDERED: NICOTINE POLACRILEX 2 MG GUM BC PRN (20:31)
[2018-02-21] MEDS ORDERED: MAGNESIUM HYDROX 2400MG/30ML ORAL SUSPENSION 30 ML CUP PO PRN (20:31)
[2018-02-21] MEDS ORDERED: ACETAMINOPHEN 325 MG TABLET (FP) PO PRN (20:31)
[2018-02-21] MEDS ORDERED: P-EPHED 60MG/TRIPROLIDI 2.5MG TABLET PO PRN (20:31)
[2018-02-21] MEDS ORDERED: LOPERAMIDE HCL 2 MG CAPSULE PO PRN (20:31)
[2018-02-21] MEDS ORDERED: guaiFENesin/D-METHORPHAN HB 10 ML UNIT-DOSE CUPS PO PRN (20:31)
[2018-02-21] MEDS ORDERED: MAGNESIUM CITRATE 300 ML BOTTLE PO PRN (20:31)
[2018-02-21] MEDS ORDERED: IBUPROFEN 400 MG TABLET (FP) PO PRN (20:31)
[2018-02-21] MEDS ORDERED: hydrOXYzine PAMOATE 50 MG CAPSULE (FP) PO PRN (20:31)
[2018-02-21] MEDS ORDERED: MENTHOL/PHENOL 1 EACH UD MM PRN (20:31)
[2018-02-21] MEDS: MAG HYDROX/AL HYDROX/SIMETH 30 ML UNIT-DOSE CUP PO PRN (21:28)
[2018-02-21] MEDS ORDERED: MELATONIN 5 MG TABLETS PO PRN (22:00)
[2018-02-21] MEDS: THIAMINE HCL 100 MG TABLET (FP) PO SCH (22:06)
[2018-02-21] MEDS: chlordiazePOXIDE HCL 25 MG CAPSULE PO SCH (22:06)
[2018-02-22] MEDS: chlordiazePOXIDE HCL 25 MG CAPSULE PO PRN (00:52)
[2018-02-22] MEDS: chlordiazePOXIDE HCL 25 MG CAPSULE PO SCH ×4 (05:42→22:06)
--- NOTE | 2018-02-22 08:23 | EKG ---
Test Reason : Blood Pressure : / mmHG Vent. Rate : 061 BPM Atrial Rate : 061 BPM P-R Int : 178 ms QRS Dur : 098 ms QT Int : 408 ms P-R-T Axes : 051 -22 043 degrees QTc Int : 410 ms NORMAL SINUS RHYTHM NORMAL ECG WHEN COMPARED WITH ECG OF 30-NOV-2017 23:46, NO SIGNIFICANT CHANGE WAS FOUND Confirmed by EVAN MENDEZ MD ([id number]) on 02/22/2018 8:23:34 AM Referred By: Festus Hunt Confirmed By:EVAN MENDEZ MD
--- NOTE | 2018-02-22 09:14 | CONSULT ---
[facility] Psychiatric Consult - Data Date of interview: 02/22/18 Admission source: Self-referred, accompanied by his Identifying data: Patient is a 52 y/o male , unemployed, dependent on spouse has grown children Substance Abuse History: Long history of alcohol use. Please refer to addiction counselor summary for for more detailed subtance use history Medical History: No chronic medcial illness. C/o dental decays. Toothaches Psychiatric History: Patient reports numerous past psychiatric hospitalizations , he suffered from Bipolar disorder comrbid with anxiety disorder. He was recently admitted to a psychiatric you @ [facility] 2-3 weeks ago. He is maintained on Seroquel, Zoloft, Trazodone and Xanax. Curently denies feeling depressed, anxious, or having psychosis or mood swings Physical/Sexual Abuse/Trauma History: Denied Mental Status Exam - Mental Status Exam Alert and Oriented to: Place, Person Cognitive Function: Good Patient Appearance: Well Groomed Mood: Euthymic Affect: Appropriate Patient Behavior: Cooperative Speech Pattern: Clear Voice Loudness: Normal Thought Process: Intact Thought Disorder: Not Present Hallucinations: Denies Suicidal Ideation: Denies Homicidal Ideation: Denies Insight/Judgement: Poor Sleep: Fair Appetite: Fair Muscle strength/Tone: Normal Psychiatric Findings - Problem List ([place] 1, 2,3) (1) Schizoaffective disorder, bipolar type with good prognostic features Current Visit: Yes Status: Acute (2) Alcohol dependence with uncomplicated withdrawal Current Visit: Yes Status: Acute (3) Cocaine dependence, uncomplicated Current Visit: Yes Status: Chronic (4) GERD (gastroesophageal reflux disease) Current Visit: Yes Status: Chronic Qualifiers: (5) Drug-induced mood disorder Current Visit: Yes Status: Suspected - Initial Treatment Plan Initial Treatment Plan: Continue Detox treatment with regimen and protocol. Resume medications with zoloft, Trazodone and Seroquel.
[2018-02-22] MEDS ORDERED: BENZOCAINE 20 % GEL 9 GM TUBE MM PRN (09:56)
[2018-02-22] MEDS ORDERED: IBUPROFEN 400 MG TABLET (FP) PO PRN (09:56)
[2018-02-22] MEDS ORDERED: BACITRACIN 15 GM TUBE TOPICAL OINTMENT TP SCH (10:00)
[2018-02-22] MEDS: QUEtiapine FUMARATE 200 MG TABLET PO SCH ×2 (10:10→22:06)
[2018-02-22] MEDS: PRENATAL VITAMINS W/ FOLIC ACID TABLET (FP) PO SCH (10:11)
[2018-02-22] MEDS: SERTRALINE HCL 50 MG TABLET (FP) PO SCH (10:11)
[2018-02-22] MEDS ORDERED: BACITRACIN 0.9 GM PACKET TP SCH (10:14)
[2018-02-22 10:23] LABS: HEMATOCRIT 39.7 % (35.4-49); HEMOGLOBIN 13.7 GM/dL (11.7-16.9); MCH 30.8 pg (25.7-33.7); MCHC 34.5 g/dl (32.0-35.9); MEAN CELL VOLUME 89.4 fl (80-96); PLATELET COUNT 153 K/MM3 (134-434); RBC 4.43 M/mm3 (4.00-5.60); RDW 13.2 % (11.9-15.9); WHITE BLOOD COUNT 4.8 K/mm3 (4.0-10.0)
[2018-02-22 10:37] LABS: ALBUMIN 3.6 g/dl (3.4-5.0); ANION GAP 8 (8-16); BLOOD UREA NITROGEN 15 mg/dL (7-18); CALCIUM 8.3 mg/dL (8.5-10.1); CHLORIDE 107 mmol/L (98-107); CO2 27 mmol/L (21-32); CREATININE 0.8 mg/dL (0.7-1.3); GLUCOSE,RANDOM 102 mg/dL (74-106); POTASSIUM 3.7 mmol/L (3.5-5.1); SGOT/AST 14 U/L (15-37); SGPT/ALT 25 U/L (12-78); SODIUM 142 mmol/L (136-145)
[2018-02-22 10:39] LABS: ALK PHOS 64 U/L (45-117); BILIRUBIN,TOTAL 0.3 mg/dL (0.2-1.0); TOT PROT 6.1 g/dl (6.4-8.2)
--- NOTE | 2018-02-22 10:41 | PN ---
[facility] CIWA - CIWA Score Nausea/Vomitin-No Nausea/No Vomiting Muscle Tremors: 2 Anxiety: 3 Agitation: 2 Paroxysmal Sweats: 2 Orientation: 0-Oriented Tacttile Disturbances: 0-None Auditory Disturbances: 0-None Visual Disturbances: 1-Very Mild Sensitivity Headache: 1-Very Mild CIWA-Ar Total Score: 11 S Progress Note (SOAP) Subjective: c/o of body aches, low back pain, interrupted sleep with nightmares, chills and diarrhea Objective: 02/22/18 10:39 Vital Signs Temperature 98.1 F 02/22/18 09:08 Pulse Rate 62 02/22/18 09:08 Respiratory Rate 18 02/22/18 09:08 Blood Pressure 111/78 02/22/18 09:08 O2 Sat by Pulse Oximetry (%) Laboratory Last Values WBC 4.8 K/mm3 (4.0-10.0) 02/22/18 07:00 RBC 4.43 M/mm3 (4.00-5.60) 02/22/18 07:00 Hgb 13.7 GM/dL (11.7-16.9) 02/22/18 07:00 Hct 39.7 % (35.4-49) 02/22/18 07:00 MCV 89.4 fl (80-96) 02/22/18 07:00 MCH 30.8 pg (25.7-33.7) 02/22/18 07:00 MCHC 34.5 g/dl (32.0-35.9) 02/22/18 07:00 RDW 13.2 % (11.9-15.9) 02/22/18 07:00 Plt Count 153 K/MM3 (134-434) 02/22/18 07:00 MPV 8.0 fl (7.5-11.1) 02/22/18 07:00 other labs pending Assessment: 02/22/18 10:39 AOx3 in no apparent distress, + diaphoresis no adventitious breath sounds + abrasion on left palm full ROM ambulating in the unit - withdrawal sx Plan: bacitracin TOP ibuprofen 800mg TOD PRN low back increase fluids labs pending continue detox continue to monitor
[2018-02-22] MEDS: BACITRACIN 0.9 GM PACKET TP SCH (18:45)
[2018-02-22] MEDS: THIAMINE HCL 100 MG TABLET (FP) PO SCH (22:06)
[2018-02-23] MEDS: chlordiazePOXIDE HCL 25 MG CAPSULE PO SCH ×3 (05:03→17:09)
[2018-02-23] MEDS: PRENATAL VITAMINS W/ FOLIC ACID TABLET (FP) PO SCH (10:03)
[2018-02-23] MEDS: BACITRACIN 0.9 GM PACKET TP SCH (10:04)
[2018-02-23] MEDS: SERTRALINE HCL 50 MG TABLET (FP) PO SCH (10:04)
[2018-02-23] MEDS: QUEtiapine FUMARATE 200 MG TABLET PO SCH ×2 (10:04→22:06)
--- NOTE | 2018-02-23 12:14 | PN ---
S CIWA - CIWA Score Nausea/Vomitin Muscle Tremors: 4-Moderate,w/Arms Extend Anxiety: 2 Agitation: 2 Paroxysmal Sweats: 3 Orientation: 0-Oriented Tacttile Disturbances: 0-None Auditory Disturbances: 0-None Visual Disturbances: 0-None Headache: 0-None Present CIWA-Ar Total Score: 13 S Progress Note (SOAP) Subjective: Sweats Shakes sleep disturbance Objective: 02/23/18 12:11 Sleeping but arouses to verbal stimuli No acute distress noted No new complaints Vital Signs Temperature 97.0 F L 02/23/18 08:55 Pulse Rate 73 02/23/18 08:55 Respiratory Rate 18 02/23/18 08:55 Blood Pressure 107/67 02/23/18 08:55 O2 Sat by Pulse Oximetry (%) Laboratory Last Values WBC 4.8 K/mm3 (4.0-10.0) 02/22/18 07:00 RBC 4.43 M/mm3 (4.00-5.60) 02/22/18 07:00 Hgb 13.7 GM/dL (11.7-16.9) 02/22/18 07:00 Hct 39.7 % (35.4-49) 02/22/18 07:00 MCV 89.4 fl (80-96) 02/22/18 07:00 MCH 30.8 pg (25.7-33.7) 02/22/18 07:00 MCHC 34.5 g/dl (32.0-35.9) 02/22/18 07:00 RDW 13.2 % (11.9-15.9) 02/22/18 07:00 Plt Count 153 K/MM3 (134-434) 02/22/18 07:00 MPV 8.0 fl (7.5-11.1) 02/22/18 07:00 Sodium 142 mmol/L (136-145) 02/22/18 07:00 Potassium 3.7 mmol/L (3.5-5.1) 02/22/18 07:00 Chloride 107 mmol/L (98-107) 02/22/18 07:00 Carbon Dioxide 27 mmol/L (21-32) 02/22/18 07:00 Anion Gap 8 (8-16) 02/22/18 07:00 BUN 15 mg/dL (7-18) 02/22/18 07:00 Creatinine 0.8 mg/dL (0.7-1.3) 02/22/18 07:00 Creat Clearance w eGFR > 60 (>60) 02/22/18 07:00 Random Glucose 102 mg/dL (74-106) 02/22/18 07:00 Calcium 8.3 mg/dL (8.5-10.1) L 02/22/18 07:00 Total Bilirubin 0.3 mg/dL (0.2-1.0) 02/22/18 07:00 AST 14 U/L (15-37) L D 02/22/18 07:00 ALT 25 U/L (12-78) D 02/22/18 07:00 Alkaline Phosphatase 64 U/L (45-117) 02/22/18 07:00 Total Protein 6.1 g/dl (6.4-8.2) L 02/22/18 07:00 Albumin 3.6 g/dl (3.4-5.0) 02/22/18 07:00 RPR Titer Nonreactive (NONREACTIVE) 02/22/18 07:00 labs noted Assessment: 02/23/18 12:14 Withdrawal sx Plan: Continue detox For UA
[2018-02-23] MEDS: chlordiazePOXIDE HCL 25 MG CAPSULE PO PRN ×2 (15:31→19:48)
[2018-02-23] MEDS: THIAMINE HCL 100 MG TABLET (FP) PO SCH (22:06)
[2018-02-23] MEDS: chlordiazePOXIDE 5 MG CAPSULE PO SCH (22:06)
[2018-02-24] MEDS: chlordiazePOXIDE HCL 25 MG CAPSULE PO PRN (03:46)
[2018-02-24] MEDS: chlordiazePOXIDE 5 MG CAPSULE PO SCH ×3 (08:00→16:27)
[2018-02-24] MEDS: BACITRACIN 0.9 GM PACKET TP SCH (10:06)
[2018-02-24] MEDS: PRENATAL VITAMINS W/ FOLIC ACID TABLET (FP) PO SCH (10:07)
[2018-02-24] MEDS: QUEtiapine FUMARATE 200 MG TABLET PO SCH ×2 (10:07→22:04)
[2018-02-24] MEDS: SERTRALINE HCL 50 MG TABLET (FP) PO SCH (10:07)
[2018-02-24 10:11] LABS: URINE APPEARANCE CLOUDY; URINE BILIRUBIN NEGATIVE (<2.0 mg/dL); URINE GLUCOSE (UA) NEGATIVE (NEGATIVE); URINE KETONE NEGATIVE (NEGATIVE); URINE LEUK ESTERASE NEGATIVE (NEGATIVE); URINE NITRITE NEGATIVE (NEGATIVE); URINE PROTEIN NEGATIVE (NEGATIVE); URINE UROBILINOGEN NEGATIVE mg/dL (0.2-1.0)
[2018-02-24 10:16] LABS: URINE COLOR YELLOW
--- NOTE | 2018-02-24 12:16 | PN ---
BHS Progress Note (SOAP) Subjective: Sweating, Interrupted Sleep, Fatigue, Anxious. Objective: PATIENT A & O X 3, OBSERVED AMBULATING ON UNIT. NO ACUTE DISTRESS. 02/24/18 12:11 Vital Signs Temperature 96.8 F L 02/24/18 09:13 Pulse Rate 87 02/24/18 09:13 Respiratory Rate 20 02/24/18 09:13 Blood Pressure 110/72 02/24/18 09:13 O2 Sat by Pulse Oximetry (%) Laboratory Tests 02/22/18 02/22/18 02/22/18 07:00 07:00 07:00 WBC 4.8 RBC 4.43 Hgb 13.7 Hct 39.7 MCV 89.4 MCH 30.8 MCHC 34.5 RDW 13.2 Plt Count 153 MPV 8.0 Sodium 142 Potassium 3.7 Chloride 107 Carbon Dioxide 27 Anion Gap 8 BUN 15 Creatinine 0.8 Creat Clearance w eGFR > 60 Random Glucose 102 Calcium 8.3 L Total Bilirubin 0.3 AST 14 L D ALT 25 D Alkaline Phosphatase 64 Total Protein 6.1 L Albumin 3.6 Urine Color Urine Appearance Urine pH Ur Specific [place] Urine Protein Urine Glucose (UA) Urine Ketones Urine Blood Urine Nitrite Urine Bilirubin Urine Urobilinogen Ur Leukocyte Esterase RPR Titer Nonreactive 02/24/18 07:00 WBC RBC Hgb Hct MCV MCH MCHC RDW Plt Count MPV Sodium Potassium Chloride Carbon Dioxide Anion Gap BUN Creatinine Creat Clearance w eGFR Random Glucose Calcium Total Bilirubin AST ALT Alkaline Phosphatase Total Protein Albumin Urine Color Yellow Urine Appearance Cloudy Urine pH 5.0 Ur Specific [place] 1.024 Urine Protein Negative Urine Glucose (UA) Negative Urine Ketones Negative Urine Blood Negative Urine Nitrite Negative Urine Bilirubin Negative Urine Urobilinogen Negative Ur Leukocyte Esterase Negative RPR Titer LABS NOTED. Assessment: 02/24/18 12:12 WITHDRAWAL SYMPTOMS. Plan: CONTINUE DETOX. INCREASE DAILY PO FLUID INTAKE. ENCOURAGE AMBULATION. PATIENT SCHEDULED FOR DISCHARGE TOMORROW.
[2018-02-24] MEDS: chlordiazePOXIDE HCL 10 MG CAPSULE PO SCH (22:04)
[2018-02-24] MEDS: THIAMINE HCL 100 MG TABLET (FP) PO SCH (22:04)
[2018-02-24] MEDS: MAG HYDROX/AL HYDROX/SIMETH 30 ML UNIT-DOSE CUP PO PRN (22:17)
[2018-02-25] MEDS: chlordiazePOXIDE HCL 10 MG CAPSULE PO SCH (05:50)
[2018-02-25 09:11] VITALS: BP 115/78; PULSE 76; TEMP 97
[2018-02-25] MEDS: BACITRACIN 0.9 GM PACKET TP SCH (09:12)
[2018-02-25] MEDS: PRENATAL VITAMINS W/ FOLIC ACID TABLET (FP) PO SCH (09:12)
[2018-02-25] MEDS: SERTRALINE HCL 50 MG TABLET (FP) PO SCH (09:12)
--- NOTE | 2018-02-25 10:48 | PN ---
BHS Progress Note (SOAP) Subjective: Patient denies current Detox symptoms and reports that he feels well overall. Objective: PATIENT A & O X 3, OBSERVED AMBULATING ON UNIT. NO ACUTE DISTRESS. 02/25/18 10:46 Vital Signs Temperature 97.0 F L 02/25/18 09:04 Pulse Rate 76 02/25/18 09:04 Respiratory Rate 18 02/25/18 09:04 Blood Pressure 115/78 02/25/18 09:04 O2 Sat by Pulse Oximetry (%) Laboratory Tests 02/22/18 02/22/18 02/22/18 07:00 07:00 07:00 WBC 4.8 RBC 4.43 Hgb 13.7 Hct 39.7 MCV 89.4 MCH 30.8 MCHC 34.5 RDW 13.2 Plt Count 153 MPV 8.0 Sodium 142 Potassium 3.7 Chloride 107 Carbon Dioxide 27 Anion Gap 8 BUN 15 Creatinine 0.8 Creat Clearance w eGFR > 60 Random Glucose 102 Calcium 8.3 L Total Bilirubin 0.3 AST 14 L D ALT 25 D Alkaline Phosphatase 64 Total Protein 6.1 L Albumin 3.6 Urine Color Urine Appearance Urine pH Ur Specific [place] Urine Protein Urine Glucose (UA) Urine Ketones Urine Blood Urine Nitrite Urine Bilirubin Urine Urobilinogen Ur Leukocyte Esterase RPR Titer Nonreactive 02/24/18 07:00 WBC RBC Hgb Hct MCV MCH MCHC RDW Plt Count MPV Sodium Potassium Chloride Carbon Dioxide Anion Gap BUN Creatinine Creat Clearance w eGFR Random Glucose Calcium Total Bilirubin AST ALT Alkaline Phosphatase Total Protein Albumin Urine Color Yellow Urine Appearance Cloudy Urine pH 5.0 Ur Specific [place] 1.024 Urine Protein Negative Urine Glucose (UA) Negative Urine Ketones Negative Urine Blood Negative Urine Nitrite Negative Urine Bilirubin Negative Urine Urobilinogen Negative Ur Leukocyte Esterase Negative RPR Titer LABS NOTED. Assessment: 02/25/18 10:47 COMPLETION OF DETOX REGIMEN. Plan: PATIENT SCHEDULED FOR DISCHARGE FROM DETOX UNIT TODAY.
--- NOTE | 2018-02-25 10:59 | DS ---
[facility] Detox Discharge Summary Admission Date: 02/21/18 Discharge Date: 02/25/18 - History Present History: Alcohol Dependence, Cocaine Dependence Additional Comments: PATIENT GOING TO [facility] OUTPATIENT SUBSTANCE USE TREATMENT PROGRAM ([facility]) FOR AFTERCARE. PATIENT WAS DISCHARGED FROM DETOX UNIT IN STABLE MEDICAL CONDITION. Pertinent Past History: Depression, History of Schizoaffective Disorder, Bipolar Type, History of Positive PPD, G.E.R.D. - Physical Exam Results Vital Signs: Vital Signs Temperature 97.0 F L 02/25/18 09:04 Pulse Rate 76 02/25/18 09:04 Respiratory Rate 18 02/25/18 09:04 Blood Pressure 115/78 02/25/18 09:04 O2 Sat by Pulse Oximetry (%) Pertinent Admission Physical Exam Findings: WITHDRAWAL SYMPTOMS. Vital Signs Temperature 97.0 F L 02/25/18 09:04 Pulse Rate 76 02/25/18 09:04 Respiratory Rate 18 02/25/18 09:04 Blood Pressure 115/78 02/25/18 09:04 O2 Sat by Pulse Oximetry (%) Laboratory Tests 02/22/18 02/22/18 02/22/18 07:00 07:00 07:00 WBC 4.8 RBC 4.43 Hgb 13.7 Hct 39.7 MCV 89.4 MCH 30.8 MCHC 34.5 RDW 13.2 Plt Count 153 MPV 8.0 Sodium 142 Potassium 3.7 Chloride 107 Carbon Dioxide 27 Anion Gap 8 BUN 15 Creatinine 0.8 Creat Clearance w eGFR > 60 Random Glucose 102 Calcium 8.3 L Total Bilirubin 0.3 AST 14 L D ALT 25 D Alkaline Phosphatase 64 Total Protein 6.1 L Albumin 3.6 Urine Color Urine Appearance Urine pH Ur Specific [place] Urine Protein Urine Glucose (UA) Urine Ketones Urine Blood Urine Nitrite Urine Bilirubin Urine Urobilinogen Ur Leukocyte Esterase RPR Titer Nonreactive 02/24/18 07:00 WBC RBC Hgb Hct MCV MCH MCHC RDW Plt Count MPV Sodium Potassium Chloride Carbon Dioxide Anion Gap BUN Creatinine Creat Clearance w eGFR Random Glucose Calcium Total Bilirubin AST ALT Alkaline Phosphatase Total Protein Albumin Urine Color Yellow Urine Appearance Cloudy Urine pH 5.0 Ur Specific [place] 1.024 Urine Protein Negative Urine Glucose (UA) Negative Urine Ketones Negative Urine Blood Negative Urine Nitrite Negative Urine Bilirubin Negative Urine Urobilinogen Negative Ur Leukocyte Esterase Negative RPR Titer LABS NOTED. - Treatment Hospital Course: Detox Protocol Followed, Detoxed Safely, Responded well, Discharged Condition Good Patient has Accepted a Rehab Referral to: PT GOING TO [facility] SUBSTANCE USE TREATMETN PROGRAM ([facility] - Medication Discharge Medications: Ambulatory Orders Quetiapine Fumarate [Seroquel -] 200 mg PO BID #60 tablet 12/03/17 Sertraline HCl [Zoloft -] 100 mg PO DAILY #30 tablet 12/03/17 traZODone HCL [Desyrel -] 100 mg PO HS #30 tablet 12/03/17 Pantoprazole Sodium [Protonix -] 20 mg PO DAILY #30 tablet.ec 02/25/18 - Diagnosis (1) Alcohol dependence with uncomplicated withdrawal Status: Acute (2) Cocaine dependence, uncomplicated Status: Chronic (3) GERD (gastroesophageal reflux disease) Status: Chronic Qualifiers: Esophagitis presence: esophagitis presence not specified Qualified Code(s) : K21.9 - Gastro-esophageal reflux disease without esophagitis (4) History of positive PPD Status: Chronic (5) Drug-induced mood disorder Status: Suspected (6) Schizoaffective disorder, bipolar type with good prognostic features Status: Acute - AMA Did Patient Leave Against Medical Advice: No
== END 2018-02-25 09:30 | disposition home or self-care (01) | DRG 774 ==
LOC: YASAS 16:48 → Y3N 18:55
PROVIDERS: ADMIT Family Medicine Addiction Medicine; ATTEND Family Medicine Addiction Medicine
PROC: HZ2ZZZZ Detoxification Services for Substance Abuse Treatment (ICD-10-PCS; principal; 2018-02-21)
DX: F10.230 Alcohol dependence with withdrawal, uncomplicated (principal); F14.20 Cocaine dependence, uncomplicated; F17.210 Nicotine dependence, cigarettes, uncomplicated; F19.24 Other psychoactive substance dependence with psychoactive substance-induced mood disorder; F25.0 Schizoaffective disorder, bipolar type; K21.9 Gastro-esophageal reflux disease without esophagitis; M54.5 Low back pain; G89.29 Other chronic pain; R76.11 Nonspecific reaction to tuberculin skin test without active tuberculosis
CPT/HCPCS: 36415; 80053; 81003; 85027; 86593; 93005; 93010

== ENCOUNTER 2018-03-28 15:04 | Inpatient (IN) | payer OTHER ==
[2018-03-28 16:46] VITALS: BMI 25.4
--- NOTE | 2018-03-28 18:59 | HP ---
COWS - Scale Resting Pulse: 0= OK 80 or Below Sweatin=Flushed/Facial Moisture Restless Observation: 3= Extraneous Movement Pupil Size: 2= Moderately Dilated Bone or Joint Aches: 2= Severe Diffuse Aches Runny Nose/ Eye Tearin= Runny Nose/Eyes GI Upset > 30mins: 3= Vomiting/Diarrhea Tremor Observation: 2= Slight Tremor Visible Yawning Observation: 2= >3x During Session Anxiety or Irritability: 2=Irritable/Anxious Goose Flesh Skin: 0=Smooth Skin COWS Score: 20 CIWA Score - CIWA Score Nausea/Vomitin Muscle Tremors: 3 Anxiety: 3 Agitation: 3 Paroxysmal Sweats: 2 Orientation: 0-Oriented Tacttile Disturbances: 2-Mild Itch/Numbness/Burn Auditory Disturbances: 2-Mild Harshness/Frighten Visual Disturbances: 1-Very Mild Sensitivity Headache: 2-Mild CIWA-Ar Total Score: 21 Admission ROS BHS - HPI Chief Complaint: i need help to stop using heroin ,alcohol,cocaine and marijuana Allergies/Adverse Reactions: Allergies Allergy/AdvReac Type Severity Reaction Status Date / Time No Known Allergies Allergy Verified 02/21/18 19:17 History of Present Illness: this 52 years old male with heroin,alcohol,cocaine,marijuana with withdrawal symptom,seeking detox,last detox 02/21/18 to syncope weight loss nicotine dependence poor oral hygiene on amoxicillin 500 mgs po tid bipolar disorder with depression no significant period of sobriety multiple admissions in detox but keep relapsing - Ebola screening Have you traveled outside of the country in the last 21 days: No Have you had contact with anyone from an Ebola affected area: No Have you been sick,other than usual withdrawal symptoms: No Do you have a fever: No - Review of Systems Constitutional: Chills, Diaphoresis, Loss of Appetite, Malaise, Night Sweats, Changes in sleep, Weakness, Unintentional Wgt. Loss EENT: reports: Tearing, Nose Congestion, Other (poor oral hygiene) Respiratory: reports: No Symptoms reported Cardiac: reports: No Symptoms Reported GI: reports: Diarrhea, Nausea, Vomiting, Abdominal cramping : reports: No Symptoms Reported Musculoskeletal: reports: Back Pain, Joint Pain, Muscle Pain, Joint Stiffness Integumentary: reports: Dryness Neuro: reports: Headache, Tremors Endocrine: reports: No Symptoms Reported Hematology: reports: No Symptoms Reported Psychiatric: reports: No Sypmtoms Reported, Judgement Intact, Mood/Affect Appropiate, other (bipolar disorder) Patient History - Patient Medical History Hx Anemia: No Hx Asthma: No Hx Chronic Obstructive Pulmonary Disease (COPD): No Hx Cancer: No Hx Cardiac Disorders: No Hx Congestive Heart Failure: No Hx Hypertension: No Hx Hypercholesterolemia: No Hx Pacemaker: No HX Cerebrovascular Accident: No Hx Seizures: No Hx Dementia: No Hx Diabetes: No Hx Gastrointestinal Disorders: Yes (acid reflux) Hx Liver Disease: No Hx Genitourinary Disorders: No Hx Sexually Transmitted Disorders: No Hx Renal Disease (ESRD): No Hx Thyroid Disease: No Hx Human Immunodeficiency Virus (HIV): No Hx Hepatitis C: No Hx Depression: Yes Hx Suicide Attempt: No Hx Bipolar Disorder: Yes Hx Schizophrenia: No Other Medical History: no suicidal,no homicidal - Patient Surgical History Past Surgical History: Yes Hx Neurologic Surgery: No Hx Cataract Extraction: No Hx Cardiac Surgery: No Hx Lung Surgery: No Hx Breast Surgery: No Hx Breast Biopsy: No Hx Abdominal Surgery: No Hx Appendectomy: No Hx Cholecystectomy: No Hx Genitourinary Surgery: No Hx Section: No Hx Orthopedic Surgery: Yes (LOWER JAW FX 1990) Hx Hysterectomy: No Anesthesia Reaction: No - PPD History Previous Implant?: Yes Documented Results: Positive w/o proof Date: 03/02/15 Results: positive PPD to be Administered?: No - Smoking Cessation Smoking history: Former smoker Have you smoked in the past 12 months: Yes Aproximately how many cigarettes per day: 20 If you are a former smoker, when did you quit?: 1 WEEK AGO Cigars Per Day: 0 Hx Chewing Tobacco Use: No Initiated information on smoking cessation: Yes 'Breaking Loose' booklet given: 03/28/18 - Substance & Tx. History Hx Alcohol Use: Yes Hx Substance Use: Yes Substance Use Type: Alcohol, Cocaine, Heroin, Marijuana Hx Substance Use Treatment: Yes ([facility] 02/21/18 02/25/18 ) - Substances Abused Heroin Route: Inhalation Frequency: Daily Amount used: 10 bags Age of first use: 30 Date of Last Use: 03/27/18 Alcohol Route: Oral Frequency: Daily Amount used: 2pints of vodka Age of first use: 25 Date of Last Use: 03/27/18 Cocaine Route: Smoking Frequency: 1-3 times last 30 days Amount used: 50$ Age of first use: 30 Date of Last Use: 03/20/18 Marijuana/Hashish Route: Smoking Frequency: 1-2 times per week Amount used: 5$ Age of first use: 25 Date of Last Use: 03/27/18 Family Disease History - Family Disease History Family Disease History: Diabetes: Grandparent, Mother (,cva), Heart Disease: Father, Mother, Other: Mother Admission Physical Exam [facility] - Vital Signs Vital Signs: Vital Signs - 24 hr 03/28/18 16:44 Temperature 97.2 F L Pulse Rate 60 Respiratory 16 Rate Blood Pressure 127/76 - Physical General Appearance: Yes: Moderate Distress, Tremorous, Irritable, Sweating, Anxious HEENTM: Yes: Normal ENT Inspection, TOMMY, Pharynx Normal, Other (poor dental hygiene) Respiratory: Yes: Within Normal Limits, Lungs Clear, Normal Breath Sounds Neck: Yes: Within Normal Limits, Supple, Trachea in good position Breast: Yes: Within Normal Limits Cardiology: Yes: Within Normal Limits, Regular Rhythm, Regular Rate, S1, S2 Abdominal: Yes: Within Normal Limits, Normal Bowel Sounds, Non Tender, Soft Genitourinary: Yes: Within Normal Limits Back: Yes: Normal Inspection, Muscle Spasm Musculoskeletal: Yes: full range of Motion, Back pain, Muscle Pain Extremities: Yes: Within Normal Limits, Normal Range of Motion, Tremors Neurological: Yes: zigzag stitcher II-XII NML intact, Fully Oriented, Alert, Motor Strength 5/5 Integumentary: Yes: Dry Lymphatic: Yes: Within Normal Limits - Diagnostic (1) Opioid dependence with withdrawal Current Visit: Yes Status: Acute (2) Alcohol dependence with uncomplicated withdrawal Current Visit: No Status: Acute (3) Cannabis dependence Current Visit: No Status: Acute (4) Nicotine dependence Current Visit: No Status: Acute Qualifiers: Nicotine product type: cigarettes Substance use status: uncomplicated Qualified Code(s): F17.210 - Nicotine dependence, cigarettes, uncomplicated Comment: NICOTINE PATCH + GUM (5) Tooth abscess Current Visit: No Status: Acute Comment: AUGMENTIN+CHLORHEXDINE+LIDOCAINE 2 % (6) weight loss Current Visit: No Status: Acute Comment: ENSURE (7) GERD (gastroesophageal reflux disease) Current Visit: No Status: Chronic Qualifiers: Esophagitis presence: esophagitis presence not specified Qualified Code(s) : K21.9 - Gastro-esophageal reflux disease without esophagitis (8) Low back pain Current Visit: No Status: Chronic Qualifiers: Chronicity: acute Back pain laterality: midline Sciatica presence: without sciatica Qualified Code(s): M54.5 - Low back pain (9) PPD positive Current Visit: No Status: Chronic Comment: cxr done 03/03/15 did not show evidence of TB (10) Bipolar II disorder Current Visit: No Status: Suspected Comment: ZOLOFT+TRAZODON+SEROQUEL Cleared for Admission [facility] - Detox or Rehab [facility] Level of Care: Medically Managed Detox Regimen/Protocol: Methadone/Librium [facility] Breath Alcohol Content Breath Alcohol Content: 0 Urine Drug Screen - Results Drug Screen Negative: No Urine Drug Screen Results: THC-Marijuana, JOVANA-Cocaine, OPI-Opiates
[2018-03-28] MEDS ORDERED: MAGNESIUM HYDROX 2400MG/30ML ORAL SUSPENSION 30 ML CUP PO PRN (19:22)
[2018-03-28] MEDS ORDERED: MAGNESIUM CITRATE 300 ML BOTTLE PO PRN (19:22)
[2018-03-28] MEDS ORDERED: LOPERAMIDE HCL 2 MG CAPSULE PO PRN (19:22)
[2018-03-28] MEDS ORDERED: MENTHOL/PHENOL 1 EACH UD MM PRN (19:22)
[2018-03-28] MEDS ORDERED: P-EPHED 60MG/TRIPROLIDI 2.5MG TABLET PO PRN (19:22)
[2018-03-28] MEDS ORDERED: guaiFENesin/D-METHORPHAN HB 10 ML UNIT-DOSE CUPS PO PRN (19:22)
[2018-03-28] MEDS ORDERED: ACETAMINOPHEN 325 MG TABLET (FP) PO PRN (19:22)
[2018-03-28] MEDS ORDERED: METHADONE HCL 10 MG TABLET (FOR DETOX USE ONLY) PO ONE ×2 (19:45→23:00)
[2018-03-28] MEDS: AMOXICILLIN 500 MG CAPSULE (FP) PO SCH (21:16)
[2018-03-28] MEDS: THIAMINE HCL 100 MG TABLET (FP) PO SCH (21:21)
[2018-03-28 21:55] LABS: URINE APPEARANCE CLEAR; URINE BILIRUBIN NEGATIVE (<2.0 mg/dL); URINE COLOR YELLOW; URINE GLUCOSE (UA) NEGATIVE (NEGATIVE); URINE KETONE NEGATIVE (NEGATIVE); URINE LEUK ESTERASE NEGATIVE (NEGATIVE); URINE NITRITE NEGATIVE (NEGATIVE); URINE PROTEIN NEGATIVE (NEGATIVE); URINE UROBILINOGEN 4.0 E.U/dl mg/dL (0.2-1.0)
[2018-03-28] MEDS: chlordiazePOXIDE HCL 25 MG CAPSULE PO SCH (22:33)
[2018-03-28] MEDS: MELATONIN 5 MG TABLETS PO PRN (22:35)
[2018-03-28] MEDS: hydrOXYzine PAMOATE 25 MG CAPSULE (FP) PO PRN (23:56)
[2018-03-29] MEDS ORDERED: CYCLOBENZAPRINE HCL 10 MG TABLET (FP) PO ONE (01:14)
[2018-03-29] MEDS: chlordiazePOXIDE HCL 25 MG CAPSULE PO PRN ×2 (01:16→19:41)
[2018-03-29] MEDS: IBUPROFEN 400 MG TABLET (FP) PO PRN ×2 (01:17→19:42)
[2018-03-29] MEDS ORDERED: CYCLOBENZAPRINE HCL 5 MG TABLET PO ONE (01:30)
[2018-03-29] MEDS: chlordiazePOXIDE HCL 25 MG CAPSULE PO SCH ×4 (05:43→22:32)
[2018-03-29] MEDS: hydrOXYzine PAMOATE 25 MG CAPSULE (FP) PO PRN (05:43)
[2018-03-29] MEDS: AMOXICILLIN 500 MG CAPSULE (FP) PO SCH ×3 (06:06→22:32)
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
--- NOTE | 2018-03-29 08:37 | EKG ---
Test Reason : Blood Pressure : / mmHG Vent. Rate : 051 BPM Atrial Rate : 051 BPM P-R Int : 172 ms QRS Dur : 090 ms QT Int : 424 ms P-R-T Axes : 044 -28 024 degrees QTc Int : 390 ms SINUS BRADYCARDIA OTHERWISE NORMAL ECG WHEN COMPARED WITH ECG OF 21-FEB-2018 20:47, NO SIGNIFICANT CHANGE WAS FOUND Confirmed by EVAN MENDEZ MD ([id number]) on 03/29/2018 8:37:12 AM Referred By: Confirmed By:EVAN MENDEZ MD
[2018-03-29] MEDS ORDERED: METHADONE HCL 10 MG TABLET (FOR DETOX USE ONLY) PO SCH (10:00)
[2018-03-29 10:18] LABS: HEMATOCRIT 39.3 % (35.4-49); HEMOGLOBIN 13.5 GM/dL (11.7-16.9); MCH 30.6 pg (25.7-33.7); MCHC 34.4 g/dl (32.0-35.9); MEAN CELL VOLUME 89.1 fl (80-96); PLATELET COUNT 148 K/MM3 (134-434); RBC 4.41 M/mm3 (4.00-5.60); RDW 13.5 % (11.9-15.9); WHITE BLOOD COUNT 4.4 K/mm3 (4.0-10.0)
[2018-03-29] MEDS: PRENATAL VITAMINS W/ FOLIC ACID TABLET (FP) PO SCH (10:24)
[2018-03-29] MEDS: SERTRALINE HCL 50 MG TABLET (FP) PO SCH (10:24)
[2018-03-29] MEDS: PANTOPRAZOLE 20 MG TABLET (FP) PO SCH (10:24)
[2018-03-29 10:53] LABS: CHLORIDE 106 mmol/L (98-107); POTASSIUM 4.2 mmol/L (3.5-5.1); SODIUM 142 mmol/L (136-145)
[2018-03-29 11:02] LABS: ALBUMIN 3.7 g/dl (3.4-5.0); ALK PHOS 64 U/L (45-117); ANION GAP 7 (8-16); BILIRUBIN,TOTAL 0.5 mg/dL (0.2-1.0); BLOOD UREA NITROGEN 16 mg/dL (7-18); CALCIUM 8.7 mg/dL (8.5-10.1); CO2 29 mmol/L (21-32); GLUCOSE,RANDOM 85 mg/dL (74-106); SGOT/AST 14 U/L (15-37); SGPT/ALT 25 U/L (12-78); TOT PROT 5.8 g/dl (6.4-8.2)
--- NOTE | 2018-03-29 16:37 | PN ---
[facility] CIWA - CIWA Score Nausea/Vomitin-No Nausea/No Vomiting Muscle Tremors: 1-None Visible, but [place] Anxiety: 1-Mildly Anxious Agitation: 1-Slight > Activity Paroxysmal Sweats: 1-Minimal Palms Moist Orientation: 0-Oriented Tacttile Disturbances: 0-None Auditory Disturbances: 0-None Visual Disturbances: 0-None Headache: 0-None Present CIWA-Ar Total Score: 4 S Progress Note (SOAP) Subjective: says he is doing well, would like something for GI reflux- d/w pt that he can ask the nurse fo maddy if needs it Objective: 03/29/18 16:35 Vital Signs - 24 hr 03/28/18 03/28/18 03/29/18 16:44 22:00 03:56 Temperature 97.2 F L 97.0 F L Pulse Rate 60 55 L Respiratory 16 18 18 Rate Blood Pressure 127/76 123/82 03/29/18 03/29/18 03/29/18 07:05 09:56 14:23 Temperature 97.3 F L 96.6 F L 97.5 F L Pulse Rate 57 L 69 64 Respiratory 18 18 18 Rate Blood Pressure 100/58 100/61 98/67 Breath Alcohol Content Breath Alcohol Content 0 Laboratory Tests 03/28/18 03/29/18 03/29/18 20:00 07:50 07:50 WBC 4.4 RBC 4.41 Hgb 13.5 Hct 39.3 MCV 89.1 MCH 30.6 MCHC 34.4 RDW 13.5 Plt Count 148 MPV 8.0 Sodium 142 Potassium 4.2 Chloride 106 Carbon Dioxide 29 Anion Gap 7 L BUN 16 Creatinine 1.0 Creat Clearance w eGFR > 60 Random Glucose 85 Calcium 8.7 Total Bilirubin 0.5 AST 14 L ALT 25 Alkaline Phosphatase 64 Total Protein 5.8 L Albumin 3.7 Urine Color Yellow Urine Appearance Clear Urine pH 6.0 Ur Specific [place] 1.019 Urine Protein Negative Urine Glucose (UA) Negative Urine Ketones Negative Urine Blood Negative Urine Nitrite Negative Urine Bilirubin Negative Urine Urobilinogen 4.0 e.u/dl Ur Leukocyte Esterase Negative RPR Titer 03/29/18 07:50 WBC RBC Hgb Hct MCV MCH MCHC RDW Plt Count MPV Sodium Potassium Chloride Carbon Dioxide Anion Gap BUN Creatinine Creat Clearance w eGFR Random Glucose Calcium Total Bilirubin AST ALT Alkaline Phosphatase Total Protein Albumin Urine Color Urine Appearance Urine pH Ur Specific [place] Urine Protein Urine Glucose (UA) Urine Ketones Urine Blood Urine Nitrite Urine Bilirubin Urine Urobilinogen Ur Leukocyte Esterase RPR Titer Nonreactive nl labs and nl VS pt laying in bed Assessment: 03/29/18 16:36 52 years old male with heroin,alcohol,cocaine,marijuana use now on alcohol detox protocol Plan: continue alcohol detox protocol prn meds for GI upset
[2018-03-29] MEDS: MAG HYDROX/AL HYDROX/SIMETH 30 ML UNIT-DOSE CUP PO PRN (20:29)
[2018-03-29] MEDS: THIAMINE HCL 100 MG TABLET (FP) PO SCH (22:32)
[2018-03-29] MEDS: QUEtiapine FUMARATE 200 MG TABLET PO SCH (22:32)
[2018-03-29] MEDS: traZODone HCL 50 MG TABLET (FP) PO SCH (22:32)
[2018-03-30] MEDS: chlordiazePOXIDE HCL 25 MG CAPSULE PO SCH ×3 (06:16→17:19)
[2018-03-30] MEDS: AMOXICILLIN 500 MG CAPSULE (FP) PO SCH ×3 (06:39→22:26)
[2018-03-30] MEDS: SERTRALINE HCL 50 MG TABLET (FP) PO SCH (10:56)
[2018-03-30] MEDS: PRENATAL VITAMINS W/ FOLIC ACID TABLET (FP) PO SCH (10:56)
[2018-03-30] MEDS: METHADONE HCL 5 MG TABLET (FOR DETOX USE ONLY) PO SCH (10:57)
[2018-03-30] MEDS: PANTOPRAZOLE 20 MG TABLET (FP) PO SCH (10:58)
--- NOTE | 2018-03-30 16:57 | PN ---
S CIWA - CIWA Score Nausea/Vomitin Muscle Tremors: 3 Anxiety: 4-Mod. Anxious/Guarded Agitation: 5 Paroxysmal Sweats: 3 Orientation: 0-Oriented Tacttile Disturbances: 0-None Auditory Disturbances: 0-None Visual Disturbances: 0-None Headache: 0-None Present CIWA-Ar Total Score: 18 BHS COWS - Scale Resting Pulse: 0= IN 80 or Below Sweatin=Flushed/Facial Moisture Restless Observation: 3= Extraneous Movement Pupil Size: 0= Normal to Room Light Bone or Joint Aches: 1= Mild Discomfort Runny Nose/ Eye Tearin= Nasal Congestion GI Upset > 30mins: 1= Stomach Cramp Tremor Observation of Outstretched Hands: 2= Slight Tremor Visible Yawning Observation: 1= 1-2x During Session Anxiety or Irritability: 2=Irritable/Anxious Goose Flesh Skin: 0=Smooth Skin COWS Score: 13 BHS Progress Note (SOAP) Subjective: shakes sweats sleep disturbance Objective: 03/30/18 16:54 Highly irritable Restless and pacing on unit Aggravated, Vital Signs Temperature 97.4 F L 03/30/18 13:39 Pulse Rate 77 03/30/18 13:39 Respiratory Rate 20 03/30/18 13:39 Blood Pressure 126/70 03/30/18 13:39 O2 Sat by Pulse Oximetry (%) Laboratory Last Values WBC 4.4 K/mm3 (4.0-10.0) 03/29/18 07:50 RBC 4.41 M/mm3 (4.00-5.60) 03/29/18 07:50 Hgb 13.5 GM/dL (11.7-16.9) 03/29/18 07:50 Hct 39.3 % (35.4-49) 03/29/18 07:50 MCV 89.1 fl (80-96) 03/29/18 07:50 MCH 30.6 pg (25.7-33.7) 03/29/18 07:50 MCHC 34.4 g/dl (32.0-35.9) 03/29/18 07:50 RDW 13.5 % (11.9-15.9) 03/29/18 07:50 Plt Count 148 K/MM3 (134-434) 03/29/18 07:50 MPV 8.0 fl (7.5-11.1) 03/29/18 07:50 Sodium 142 mmol/L (136-145) 03/29/18 07:50 Potassium 4.2 mmol/L (3.5-5.1) 03/29/18 07:50 Chloride 106 mmol/L (98-107) 03/29/18 07:50 Carbon Dioxide 29 mmol/L (21-32) 03/29/18 07:50 Anion Gap 7 (8-16) L 03/29/18 07:50 BUN 16 mg/dL (7-18) 03/29/18 07:50 Creatinine 1.0 mg/dL (0.7-1.3) 03/29/18 07:50 Creat Clearance w eGFR > 60 (>60) 03/29/18 07:50 Random Glucose 85 mg/dL (74-106) 03/29/18 07:50 Calcium 8.7 mg/dL (8.5-10.1) 03/29/18 07:50 Total Bilirubin 0.5 mg/dL (0.2-1.0) 03/29/18 07:50 AST 14 U/L (15-37) L 03/29/18 07:50 ALT 25 U/L (12-78) 03/29/18 07:50 Alkaline Phosphatase 64 U/L (45-117) 03/29/18 07:50 Total Protein 5.8 g/dl (6.4-8.2) L 03/29/18 07:50 Albumin 3.7 g/dl (3.4-5.0) 03/29/18 07:50 Urine Color Yellow 03/28/18 20:00 Urine Appearance Clear 03/28/18 20:00 Urine pH 6.0 (5.0-8.0) 03/28/18 20:00 Ur Specific [place] 1.019 (1.001-1.035) 03/28/18 20:00 Urine Protein Negative (NEGATIVE) 03/28/18 20:00 Urine Glucose (UA) Negative (NEGATIVE) 03/28/18 20:00 Urine Ketones Negative (NEGATIVE) 03/28/18 20:00 Urine Blood Negative (NEGATIVE) 03/28/18 20:00 Urine Nitrite Negative (NEGATIVE) 03/28/18 20:00 Urine Bilirubin Negative (<2.0 mg/dL) 03/28/18 20:00 Urine Urobilinogen 4.0 e.u/dl mg/dL (0.2-1.0) 03/28/18 20:00 Ur Leukocyte Esterase Negative (NEGATIVE) 03/28/18 20:00 RPR Titer Nonreactive (NONREACTIVE) 03/29/18 07:50 labs noted Assessment: 03/30/18 16:57 withdrawal sx Plan: continue detox increase hydration
[2018-03-30] MEDS: chlordiazePOXIDE HCL 25 MG CAPSULE PO PRN (19:55)
[2018-03-30] MEDS: traZODone HCL 50 MG TABLET (FP) PO SCH (22:26)
[2018-03-30] MEDS: QUEtiapine FUMARATE 200 MG TABLET PO SCH (22:26)
[2018-03-30] MEDS: THIAMINE HCL 100 MG TABLET (FP) PO SCH (22:26)
[2018-03-30] MEDS: chlordiazePOXIDE 5 MG CAPSULE PO SCH (22:27)
[2018-03-31] MEDS: AMOXICILLIN 500 MG CAPSULE (FP) PO SCH ×3 (06:30→22:32)
[2018-03-31] MEDS: chlordiazePOXIDE 5 MG CAPSULE PO SCH (07:42)
[2018-03-31] MEDS: SERTRALINE HCL 50 MG TABLET (FP) PO SCH (11:03)
[2018-03-31] MEDS: METHADONE HCL 5 MG TABLET (FOR DETOX USE ONLY) PO SCH (11:46)
--- NOTE | 2018-03-31 12:39 | PN ---
Psychiatric Progress Note Vital Signs: Vital Signs Period Temp Pulse Resp BP Sys/Willis Pulse Ox Last 24 Hr 97.3 F-98.7 F 75-84 16-20 100-126/60-70 Date of Session: 03/31/18 Chief Complaint:: " I feel a bit dizzy." Sedation. HPI: Patient is referred for psychiatric re-evaluation for sedation.Observed as unsteady,bizarre,sluggish and disoriented.Mr Cespedes is currently undergoing detoxification for opioid,alcohol and benzodiazepine dependence.Patient is also addressing schizoaffective disorder.Currently on a regimen of seroquel and trazodone. ROS: Ambulatory but visibly unsteady.Wandering around.Oriented to place + person but not to time. Current Medications: Active Medications Generic Name Dose Route Start Last Admin Trade Name Freq PRN Reason Stop Dose Admin Acetaminophen 650 mg 03/28/18 19:22 Tylenol - PO Q4H PRN FEVER Al Hydroxide/Mg Hydroxide 30 ml 03/28/18 19:22 03/29/18 20:29 Mylanta Oral Suspension - PO 30 ml Q6H PRN Administration DYSPEPSIA Amoxicillin 500 mg 03/28/18 22:00 03/31/18 06:30 Amoxicillin - PO 04/04/18 21:59 500 mg TID CHARLENE Administration Chlordiazepoxide HCl 10 mg 03/31/18 23:00 Librium - PO 04/01/18 17:01 [id number] CHARLENE Eucalyptus/Menthol/Phenol/Sorbitol 1 each 03/28/18 19:22 Cepastat Lozenge - MM Q4H PRN SORE THROAT Guaifenesin 10 ml 03/28/18 19:22 Robitussin Dm - PO Q6H PRN COUGH Hydroxyzine Pamoate 25 mg 03/28/18 19:22 03/29/18 05:43 Vistaril - PO 25 mg Q4H PRN Administration AGITATION Ibuprofen 400 mg 03/28/18 19:22 03/29/18 19:42 Motrin - PO 400 mg Q6H PRN Administration PAIN LEVEL 4-6 Loperamide HCl 4 mg 03/28/18 19:22 Imodium - PO Q6H PRN DIARRHEA Magnesium Citrate 300 ml 03/28/18 19:22 Citroma - PO Q48H PRN CONSTIPATION Magnesium Hydroxide 30 ml 03/28/18 19:22 Milk Of Magnesia - PO DAILY PRN CONSTIPATION Melatonin 5 mg 03/28/18 22:00 03/28/18 22:35 Melatonin PO 5 mg HS PRN Administration INSOMNIA Methadone HCl 5 mg 04/02/18 06:00 Dolophine - PO 04/02/18 06:01 DAILY@0600 CHARLENE Methadone HCl 10 mg 04/01/18 10:00 Dolophine - PO 04/01/18 10:01 DAILY CHARLENE Nicotine Polacrilex 2 mg 03/28/18 19:22 Nicorette Gum - BC Q2H PRN NICOTINE REPLACEMENT RX Pantoprazole Sodium 20 mg 03/29/18 10:00 03/30/18 10:58 Protonix - PO 20 mg DAILY CHARLENE Administration Multivit/Folic Acid/Iron 1 tab 03/29/18 10:00 03/30/18 10:56 Vitamins (Sjr) - PO 1 tab DAILY CHARLENE Administration Pseudoephedrine/Triprolidine 1 combo 03/28/18 19:22 Actifed - PO TID PRN NASAL CONGESTION Thiamine HCl 100 mg 03/28/18 22:00 03/30/18 22:26 Vitamin B1 - PO 100 mg HS CHARLENE Administration Medication(s) Change(s): Detox regimen is placed, temporarily, on hold.Trazodone 50 mg/hs + seroquel 200 mg/hs : discontinued until further orders. Current Side Effect: Yes (medication-induced sedation (likely)) Lab tests ordered: Yes (ammonia level is requested) Lab tests reviewed: Yes Provider note:: Chart reviewed.Consult note from attending's psychiatrist Dr Agrawal (03/29/18) : appreciated.Case discussed with medical STOREROOM ATTENDANT Sarika.Patient is examined at bedside.Medical students in attendance.Mr Cespedes shows clear evidence of a sedated state.Wanders around,communicates with slurred/delayed speech,woobles in hallways,provides inaccurate answers about currrent date and gets incoherent during interview.Patient is, however, able to follow redirections.Instructed to remain in bed.Placed under Constant Observation (1:1 ) for safety.Discussed with Multidisciplinary team.Medications HELD until further orders. Total face to face time:: 35 Mental Status Exam - Mental Status Exam Alert and Oriented to: Place, Person Cognitive Function: Impaired Patient Appearance: Disheveled Mood: Nervous, Withdrawn, Anxious Affect: Mood Congruent Patient Behavior: Restless, Sedated, Fatigued Speech Pattern: Delayed, Slurred Voice Loudness: Moderately Soft/Quiet Thought Process: Disorganized Thought Disorder: Not Present Hallucinations: Denies Suicidal Ideation: Denies Homicidal Ideation: Denies Insight/Judgement: Poor Sleep: Well Appetite: Good Muscle strength/Tone: Normal Gait/Station: Other (unsteady) Psychiatric Treatment Plan - Problem List (1) Sedated Comment: . (2) Alcohol dependence with uncomplicated withdrawal Comment: . (3) Opioid dependence with withdrawal Comment: . (4) Cannabis dependence Comment: . (5) Nicotine dependence Qualifiers: Nicotine product type: cigarettes Substance use status: uncomplicated Qualified Code(s): F17.210 - Nicotine dependence, cigarettes, uncomplicated Comment: .NICOTINE PATCH + GUM (6) Cocaine dependence, uncomplicated Comment: . (7) Drug-induced mood disorder Comment: . (8) Schizoaffective disorder Qualifiers: Schizoaffective disorder type: unspecified Qualified Code(s): F25.9 - Schizoaffective disorder, unspecified Comment: .
--- NOTE | 2018-03-31 12:58 | PN ---
S Progress Note Note: Psychiatry Attending's note : Patient is alert,oriented to place + person. Ambulatory.Steady gait.Improved cognition. Constant observation is discontinued. Nursing staff is made aware.
--- NOTE | 2018-03-31 13:14 | PN ---
BHS Progress Note (SOAP) Subjective: Anxious, Tremors, Interrupted Sleep. Objective: PATIENT A & O X 2 (UNCERTAIN ABOUT CURRENT DAY / DATE). PATIENT OBSERVED AMBULATING ON UNIT. NO ACUTE DISTRESS. PATIENT APPEARS AGITATED, ANXIOUS, AND SOMEWHAT ATAXIC. PATIENT ALSO REPROTS HEARING VOICES; HOWEVER, HE DENIES THAT VOICES ARE INSTRUCTING HIM TO HURT HIMSELF OR ANYONE ELSE. PSYCH CONSULT REQUESTED. 03/31/18 13:11 Vital Signs Temperature 97.3 F L 03/31/18 09:50 Pulse Rate 80 03/31/18 09:50 Respiratory Rate 18 03/31/18 09:50 Blood Pressure 105/60 03/31/18 09:50 O2 Sat by Pulse Oximetry (%) Laboratory Tests 03/28/18 03/29/18 03/29/18 20:00 07:50 07:50 WBC 4.4 RBC 4.41 Hgb 13.5 Hct 39.3 MCV 89.1 MCH 30.6 MCHC 34.4 RDW 13.5 Plt Count 148 MPV 8.0 Sodium 142 Potassium 4.2 Chloride 106 Carbon Dioxide 29 Anion Gap 7 L BUN 16 Creatinine 1.0 Creat Clearance w eGFR > 60 Random Glucose 85 Calcium 8.7 Total Bilirubin 0.5 AST 14 L ALT 25 Alkaline Phosphatase 64 Ammonia Total Protein 5.8 L Albumin 3.7 Urine Color Yellow Urine Appearance Clear Urine pH 6.0 Ur Specific [place] 1.019 Urine Protein Negative Urine Glucose (UA) Negative Urine Ketones Negative Urine Blood Negative Urine Nitrite Negative Urine Bilirubin Negative Urine Urobilinogen 4.0 e.u/dl Ur Leukocyte Esterase Negative RPR Titer 03/29/18 03/31/18 07:50 10:50 WBC RBC Hgb Hct MCV MCH MCHC RDW Plt Count MPV Sodium Potassium Chloride Carbon Dioxide Anion Gap BUN Creatinine Creat Clearance w eGFR Random Glucose Calcium Total Bilirubin AST ALT Alkaline Phosphatase Ammonia 53.42 H Total Protein Albumin Urine Color Urine Appearance Urine pH Ur Specific [place] Urine Protein Urine Glucose (UA) Urine Ketones Urine Blood Urine Nitrite Urine Bilirubin Urine Urobilinogen Ur Leukocyte Esterase RPR Titer Nonreactive LABS NOTED. AMMONIA LEVEL ORDERED - RESULT NOTED. 03/31/18 13:12 Assessment: 03/31/18 13:11 WITHDRAWAL SYMPTOMS. HYPERAMMONEMIA. 03/31/18 13:14 Plan: CONTINUE DETOX. INCREASE DAILY PO FLUID INTAKE. START LACTULOSE, 20 GM TID. PATIENT MAINTAINED ON 1:1 CONTINUOUS OBSERVATION FOR SAFETY ( RECOMMENDED/ ORDERED BY PSYCHIATRIST DR. MELARA).
[2018-03-31] MEDS: PANTOPRAZOLE 20 MG TABLET (FP) PO SCH (13:58)
[2018-03-31] MEDS: PRENATAL VITAMINS W/ FOLIC ACID TABLET (FP) PO SCH (13:58)
[2018-03-31] MEDS ORDERED: METHADONE HCL 5 MG TABLET (FOR DETOX USE ONLY) PO ONE (14:14)
--- NOTE | 2018-03-31 14:20 | PN ---
[facility] Progress Note Note: IN AFTERNOON, PATIENT APPEARS LESS LETHARGIC. 1:1 CONTINUOUS OBSERVATIONS STATUS D/C'D BY PSYCHIATRIST DR. MELARA. PATIENT NOW REQUESTING METHADONE, 15 MG DOSE THAT WAS HELD FROM EARLIER ON TODAY. REPLACEMENT METHADONE, 15 MG PO X 1 ORDERED. Arthur MORGAN NP.
[2018-03-31] MEDS: LACTULOSE 20 GM/30 ML UDC (FOR ORAL USE ONLY) PO SCH ×2 (14:28→22:32)
[2018-03-31] MEDS: IBUPROFEN 400 MG TABLET (FP) PO PRN ×2 (15:28→23:16)
[2018-03-31] MEDS: chlordiazePOXIDE HCL 10 MG CAPSULE PO SCH ×2 (17:14→22:32)
[2018-03-31] MEDS: NICOTINE POLACRILEX 2 MG GUM BC PRN (20:24)
[2018-03-31] MEDS: THIAMINE HCL 100 MG TABLET (FP) PO SCH (22:32)
[2018-03-31] MEDS: MELATONIN 5 MG TABLETS PO PRN (22:33)
[2018-03-31] MEDS ORDERED: chlordiazePOXIDE HCL 10 MG CAPSULE PO SCH (23:00)
--- NOTE | 2018-03-31 23:26 | PN ---
S Progress Note Note: c/o body aches and diarrheA (X4). ASKING FOR MORE METHADONE D/W CLIENT ADDITIONAL METHADONE WILL NOT BE GIVEN OFFERED MOTRIN. STATES IT DOES NOT WORK. FLEXERIL OFFERED CLIENT AGREED . INFORMED CLIENT DIARRHEA R/T LACTULOSE FOR ELEVATED AMMONIA LEVEL WILL DECREASE LACTULOSE FLEXERIL 5 MG X1 CLIENT IS A/O X3 NAD, MENTATING WELL Last Vital Signs Temp Pulse Resp BP Pulse Ox 97.3 F L 52 L 18 108/63 03/31/18 23:07 03/31/18 23:07 03/31/18 23:07 03/31/18 23:07 CONT DETOX, MONITOR CLOSELY FOR WORSENING WITHDRAWAL SX'S
[2018-04-01] MEDS: MAG HYDROX/AL HYDROX/SIMETH 30 ML UNIT-DOSE CUP PO PRN ×2 (01:28→11:21)
[2018-04-01] MEDS: AMOXICILLIN 500 MG CAPSULE (FP) PO SCH ×3 (06:00→23:07)
[2018-04-01] MEDS: chlordiazePOXIDE HCL 10 MG CAPSULE PO SCH ×3 (06:23→16:36)
[2018-04-01] MEDS ORDERED: METHADONE HCL 10 MG TABLET (FOR DETOX USE ONLY) PO SCH (10:00)
[2018-04-01] MEDS: LACTULOSE 20 GM/30 ML UDC (FOR ORAL USE ONLY) PO SCH ×2 (10:21→23:08)
[2018-04-01] MEDS: PRENATAL VITAMINS W/ FOLIC ACID TABLET (FP) PO SCH (10:21)
[2018-04-01] MEDS: NICOTINE POLACRILEX 2 MG GUM BC PRN (10:22)
[2018-04-01] MEDS: PANTOPRAZOLE 20 MG TABLET (FP) PO SCH (10:22)
[2018-04-01] MEDS: IBUPROFEN 400 MG TABLET (FP) PO PRN (12:43)
--- NOTE | 2018-04-01 13:14 | PN ---
[facility] Progress Note (SOAP) Subjective: Anxious, Fatigue. Objective: PATIENT A & O X 3, OBSERVED AMBULATING ON UNIT. NO ACUTE DISTRESS. 04/01/18 13:13 Vital Signs Temperature 96.8 F L 04/01/18 09:03 Pulse Rate 78 04/01/18 09:03 Respiratory Rate 16 04/01/18 09:03 Blood Pressure 102/71 04/01/18 09:03 O2 Sat by Pulse Oximetry (%) Laboratory Tests 03/28/18 03/29/18 03/29/18 20:00 07:50 07:50 WBC 4.4 RBC 4.41 Hgb 13.5 Hct 39.3 MCV 89.1 MCH 30.6 MCHC 34.4 RDW 13.5 Plt Count 148 MPV 8.0 Sodium 142 Potassium 4.2 Chloride 106 Carbon Dioxide 29 Anion Gap 7 L BUN 16 Creatinine 1.0 Creat Clearance w eGFR > 60 Random Glucose 85 Calcium 8.7 Total Bilirubin 0.5 AST 14 L ALT 25 Alkaline Phosphatase 64 Ammonia Total Protein 5.8 L Albumin 3.7 Urine Color Yellow Urine Appearance Clear Urine pH 6.0 Ur Specific [place] 1.019 Urine Protein Negative Urine Glucose (UA) Negative Urine Ketones Negative Urine Blood Negative Urine Nitrite Negative Urine Bilirubin Negative Urine Urobilinogen 4.0 e.u/dl Ur Leukocyte Esterase Negative RPR Titer 03/29/18 03/31/18 07:50 10:50 WBC RBC Hgb Hct MCV MCH MCHC RDW Plt Count MPV Sodium Potassium Chloride Carbon Dioxide Anion Gap BUN Creatinine Creat Clearance w eGFR Random Glucose Calcium Total Bilirubin AST ALT Alkaline Phosphatase Ammonia 53.42 H Total Protein Albumin Urine Color Urine Appearance Urine pH Ur Specific [place] Urine Protein Urine Glucose (UA) Urine Ketones Urine Blood Urine Nitrite Urine Bilirubin Urine Urobilinogen Ur Leukocyte Esterase RPR Titer Nonreactive LABS NOTED. Assessment: 04/01/18 13:13 WITHDRAWAL SYMPTOMS. HYPERAMMONEMIA. Plan: CONTINUE DETOX. CONTINUE LACTULOSE. REPEAT AMMONIA LEVEL TOMORROW AM.
[2018-04-01] MEDS ORDERED: CYCLOBENZAPRINE HCL 5 MG TABLET PO PRN (16:25)
[2018-04-01] MEDS: CYCLOBENZAPRINE HCL 5 MG TABLET PO PRN ×2 (16:45→23:08)
--- NOTE | 2018-04-01 17:00 | PN ---
Psychiatric Progress Note Vital Signs: Vital Signs Period Temp Pulse Resp BP Sys/Willis Pulse Ox Last 24 Hr 96.8 F-99.1 F 52-78 -18 96-111/56-74 Date of Session: 04/01/18 Chief Complaint:: " I need my psychiatric medications." HPI: Psychiatric follow up requested, by assigned nurse, for this patient because of irritability,hostility and argumentative behavior.Patient is eager to resume his psychotropic medications (trazodone + zoloft + seroquel) held on for oversedation.Mr Cespedes has considerably recovered.Walks around with steady gait.Coherent and goal-directed.Patient is seeking immediate gratification. ROS: Unremarkable. Current Medications: Active Medications Generic Name Dose Route Start Last Admin Trade Name Freq PRN Reason Stop Dose Admin Al Hydroxide/Mg Hydroxide 30 ml 03/28/18 19:22 04/01/18 11:21 Mylanta Oral Suspension - PO 30 ml Q6H PRN Administration DYSPEPSIA Amoxicillin 500 mg 03/28/18 22:00 04/01/18 14:07 Amoxicillin - PO 04/04/18 21:59 500 mg TID CHARLENE Administration Chlordiazepoxide HCl 10 mg 03/31/18 17:00 04/01/18 16:36 Librium - PO 04/01/18 17:01 10 mg [id number] CHARLENE Administration Cyclobenzaprine HCl 10 mg 04/01/18 16:39 04/01/18 16:45 Cyclobenzaprine Hcl PO 10 mg Q8H PRN Administration PAIN 6-10;FOR MUSCLE SPASMS Eucalyptus/Menthol/Phenol/Sorbitol 1 each 03/28/18 19:22 Cepastat Lozenge - MM Q4H PRN SORE THROAT Guaifenesin 10 ml 03/28/18 19:22 03/31/18 17:49 Robitussin Dm - PO 10 ml Q6H PRN Administration COUGH Ibuprofen 400 mg 03/28/18 19:22 04/01/18 12:43 Motrin - PO 400 mg Q6H PRN Administration PAIN LEVEL 4-6 Lactulose 20 gm 04/01/18 10:00 04/01/18 10:21 Cephulac (Oral Use) PO 20 gm BID CHARLENE Administration Loperamide HCl 4 mg 03/28/18 19:22 Imodium - PO Q6H PRN DIARRHEA Magnesium Citrate 300 ml 03/28/18 19:22 Citroma - PO Q48H PRN CONSTIPATION Magnesium Hydroxide 30 ml 03/28/18 19:22 04/01/18 14:17 Milk Of Magnesia - PO 30 ml DAILY PRN Administration CONSTIPATION Melatonin 5 mg 03/28/18 22:00 03/31/18 22:33 Melatonin PO 5 mg HS PRN Administration INSOMNIA Methadone HCl 5 mg 04/02/18 06:00 Dolophine - PO 04/02/18 06:01 DAILY@0600 CHARLENE Nicotine Polacrilex 2 mg 03/28/18 19:22 04/01/18 10:22 Nicorette Gum - BC 2 mg Q2H PRN Administration NICOTINE REPLACEMENT RX Pantoprazole Sodium 20 mg 03/29/18 10:00 04/01/18 10:22 Protonix - PO 20 mg DAILY CHARLENE Administration Multivit/Folic Acid/Iron 1 tab 03/29/18 10:00 04/01/18 10:21 Vitamins (Sjr) - PO 1 tab DAILY CHARLENE Administration Pseudoephedrine/Triprolidine 1 combo 03/28/18 19:22 Actifed - PO TID PRN NASAL CONGESTION Thiamine HCl 100 mg 03/28/18 22:00 03/31/18 22:32 Vitamin B1 - PO 100 mg HS CHARLENE Administration Medication(s) Change(s): Medications reviewed.Will resume seroquel 100 mg po hs (reduced dose) + zoloft 100 mg po daily.Trazodone still withdrawn as a precaution against sedation/alteration of mental status.Side effects/benefits of these drugs are revisited with the patient.Mr Cespedes agrees to this plan of care. Current Side Effect: No Lab tests ordered: Yes Lab tests reviewed: Yes (ammonia level = 52) Provider note:: Met with patient.He states that he got into a verbal argument with his nurse over the resumption of his psychotropic medications." I am walking fine now.I am not dizzy.I don't see why I should not get my medications back." Patient is referring to sertraline,quetiapine and trazodone.Held yesterday for oversedation.Mr Cespedes is made aware of the reason for holding the medications.He is informed that seroquel will be resumed at half the initial dose (as a precaution) along with zoloft.Trazodone will not renewed for the time being (due to the observation that the patient gets easily sedated).Mr Cespedes has given his verbal consent to this plan of care.Calm,appropriate during interview.Cooperative and goal-directed.No escalation.Mental status remains stable.Agitation, reported earlier, was not related to a psychotic decompensation but rather to this patient's frustration for not receiving his usual medications.Mood returned to baseline as soon as reassurance is provided to the patient.Stable for continuation of detoxification treatment on . Total face to face time:: 35 Mental Status Exam - Mental Status Exam Alert and Oriented to: Time, Place, Person Cognitive Function: Good Patient Appearance: Well Groomed Mood: Angry, Anxious (about getting his dose of muscle relaxant), Irritable Affect: Mood Congruent Patient Behavior: Appropriate (as evidenced by his ability to listen to my redirections and negotiate requests), Cooperative Speech Pattern: Clear, Appropriate Voice Loudness: Normal Thought Process: Goal Oriented Hallucinations: Denies Suicidal Ideation: Denies Homicidal Ideation: Denies Insight/Judgement: Fair Sleep: Well Appetite: Good Muscle strength/Tone: Normal Gait/Station: Normal Psychiatric Treatment Plan - Problem List (1) Alcohol dependence with uncomplicated withdrawal Comment: . (2) Opioid dependence with withdrawal Comment: . (3) Cannabis dependence Comment: . (4) Nicotine dependence Qualifiers: Nicotine product type: cigarettes Substance use status: uncomplicated Qualified Code(s): F17.210 - Nicotine dependence, cigarettes, uncomplicated Comment: .NICOTINE PATCH + GUM (5) Cocaine dependence, uncomplicated Comment: . (6) Drug-induced mood disorder Comment: . (7) Schizoaffective disorder Qualifiers: Schizoaffective disorder type: unspecified Qualified Code(s): F25.9 - Schizoaffective disorder, unspecified Comment: .
--- NOTE | 2018-04-01 18:05 | PN ---
[facility] Progress Note Note: NOTIFIED BY RN THAT PATIENT C/O BACK PAIN AND REQUESTING FLEXERIL DOSE NOW. FLEXERIL WAS ORDERED FOR ONE DOSE TODAY AT 11PM. PER RN, PATIENT WAS BECOMING AGITATED WAITING FOR MEDICATION. FLEXERIL ORDER CHANGED TO 10MG PRN. CONTINUE TO MONITOR CLINICALLY.
[2018-04-01] MEDS ORDERED: QUEtiapine FUMARATE 100 MG TABLET (FP) PO SCH (22:00)
[2018-04-01] MEDS: THIAMINE HCL 100 MG TABLET (FP) PO SCH (23:07)
[2018-04-01] MEDS: MELATONIN 5 MG TABLETS PO PRN (23:12)
[2018-04-01] MEDS ORDERED: CYCLOBENZAPRINE HCL 5 MG TABLET PO ONE (23:18)
[2018-04-02] MEDS: AMOXICILLIN 500 MG CAPSULE (FP) PO SCH (05:42)
[2018-04-02] MEDS ORDERED: METHADONE HCL 5 MG TABLET (FOR DETOX USE ONLY) PO SCH (06:00)
[2018-04-02] MEDS ORDERED: SERTRALINE HCL 50 MG TABLET (FP) PO SCH (10:00)
[2018-04-02] MEDS: LACTULOSE 20 GM/30 ML UDC (FOR ORAL USE ONLY) PO SCH (10:19)
[2018-04-02] MEDS: PANTOPRAZOLE 20 MG TABLET (FP) PO SCH (10:20)
[2018-04-02] MEDS: PRENATAL VITAMINS W/ FOLIC ACID TABLET (FP) PO SCH (10:20)
[2018-04-02 10:42] VITALS: BP 100/65; PULSE 83; TEMP 98.1
--- NOTE | 2018-04-02 12:21 | PN ---
S Progress Note (SOAP) Subjective: Patient reports mild fatigue; patient denies any other withdrawal symptoms. Objective: PATIENT A & O X 3, OBSERVED AMBULATING ON UNIT. NO ACUTE DISTRESS. 04/02/18 12:20 Vital Signs Temperature 98.1 F 04/02/18 10:41 Pulse Rate 83 04/02/18 10:41 Respiratory Rate 20 04/02/18 10:41 Blood Pressure 100/65 04/02/18 10:41 O2 Sat by Pulse Oximetry (%) Laboratory Tests 03/28/18 03/29/18 03/29/18 20:00 07:50 07:50 WBC 4.4 RBC 4.41 Hgb 13.5 Hct 39.3 MCV 89.1 MCH 30.6 MCHC 34.4 RDW 13.5 Plt Count 148 MPV 8.0 Sodium 142 Potassium 4.2 Chloride 106 Carbon Dioxide 29 Anion Gap 7 L BUN 16 Creatinine 1.0 Creat Clearance w eGFR > 60 Random Glucose 85 Calcium 8.7 Total Bilirubin 0.5 AST 14 L ALT 25 Alkaline Phosphatase 64 Ammonia Total Protein 5.8 L Albumin 3.7 Urine Color Yellow Urine Appearance Clear Urine pH 6.0 Ur Specific [place] 1.019 Urine Protein Negative Urine Glucose (UA) Negative Urine Ketones Negative Urine Blood Negative Urine Nitrite Negative Urine Bilirubin Negative Urine Urobilinogen 4.0 e.u/dl Ur Leukocyte Esterase Negative RPR Titer 03/29/18 03/31/18 04/02/18 07:50 10:50 08:00 WBC RBC Hgb Hct MCV MCH MCHC RDW Plt Count MPV Sodium Potassium Chloride Carbon Dioxide Anion Gap BUN Creatinine Creat Clearance w eGFR Random Glucose Calcium Total Bilirubin AST ALT Alkaline Phosphatase Ammonia 53.42 H 71.84 H Total Protein Albumin Urine Color Urine Appearance Urine pH Ur Specific [place] Urine Protein Urine Glucose (UA) Urine Ketones Urine Blood Urine Nitrite Urine Bilirubin Urine Urobilinogen Ur Leukocyte Esterase RPR Titer Nonreactive LABS NOTED. Assessment: 04/02/18 12:20 COMPLETION OF DETOX REGIMEN. Plan: PATIENT SCHEDULED FOR DISCHARGE FROM UNIT TODAY.
--- NOTE | 2018-04-02 12:27 | DS ---
[facility] Detox Discharge Summary Admission Date: 03/28/18 Discharge Date: 04/02/18 - History Present History: Alcohol Dependence, Cannabis Dependence, Opioid Dependence Additional Comments: PATIENT GOING TO ATTEND [facility] OUTPATIENT SUBSTANCE USE TREATMENT PROGRAM AND WILL LIKELY START TREATMENT AT [facility] ([facility]). PATIENT ADVISED TO FOLLOW-UP [facility] AFTER DISCHARGE FROM DETOX UNIT FOR ELEVATED AMMONIA LEVEL NOTED WHILE ADMITTED FOR DETOX. COPIES OF ALL LABS DRAWN WHILE ADMITTED FOR DETOX GIVEN TO PATIENT AT TIME OF DISCHARGE FROM DETOX UNIT. PRESCRIPTION FOR FOLLOW-UP FOR LACTULOSE SENT TO PATIENT'S PHARMACY ([facility] [place] [facility]) AT TIME OF DISCHARGE. PATIENT WAS DISCHARGED FROM DETOX UNIT IN STABLE MEDICAL CONDITION. Pertinent Past History: G.E.R.D., History of Tooth Abscess, History of Bipolar Disorder, History of PPD Positive, History of Schizoaffective Disorder, Low Back Pain, Hyperammonemia, Nicotine Dependence, Weight Loss. - Physical Exam Results Vital Signs: Vital Signs Temperature 98.1 F 04/02/18 10:41 Pulse Rate 83 04/02/18 10:41 Respiratory Rate 20 04/02/18 10:41 Blood Pressure 100/65 04/02/18 10:41 O2 Sat by Pulse Oximetry (%) Pertinent Admission Physical Exam Findings: WITHDRAWAL SYMPTOMS. Laboratory Tests 03/28/18 03/29/18 03/29/18 20:00 07:50 07:50 WBC 4.4 RBC 4.41 Hgb 13.5 Hct 39.3 MCV 89.1 MCH 30.6 MCHC 34.4 RDW 13.5 Plt Count 148 MPV 8.0 Sodium 142 Potassium 4.2 Chloride 106 Carbon Dioxide 29 Anion Gap 7 L BUN 16 Creatinine 1.0 Creat Clearance w eGFR > 60 Random Glucose 85 Calcium 8.7 Total Bilirubin 0.5 AST 14 L ALT 25 Alkaline Phosphatase 64 Ammonia Total Protein 5.8 L Albumin 3.7 Urine Color Yellow Urine Appearance Clear Urine pH 6.0 Ur Specific [place] 1.019 Urine Protein Negative Urine Glucose (UA) Negative Urine Ketones Negative Urine Blood Negative Urine Nitrite Negative Urine Bilirubin Negative Urine Urobilinogen 4.0 e.u/dl Ur Leukocyte Esterase Negative RPR Titer 07/22/18 07/24/18 07/26/18 07:50 10:50 08:00 WBC RBC Hgb Hct MCV MCH MCHC RDW Plt Count MPV Sodium Potassium Chloride Carbon Dioxide Anion Gap BUN Creatinine Creat Clearance w eGFR Random Glucose Calcium Total Bilirubin AST ALT Alkaline Phosphatase Ammonia 53.42 H 71.84 H Total Protein Albumin Urine Color Urine Appearance Urine pH Ur Specific [place] Urine Protein Urine Glucose (UA) Urine Ketones Urine Blood Urine Nitrite Urine Bilirubin Urine Urobilinogen Ur Leukocyte Esterase RPR Titer Nonreactive LABS NOTED. - Treatment Hospital Course: Detox Protocol Followed, Detoxed Safely, Responded well, Discharged Condition Good Patient has Accepted a Rehab Referral to: PT WILL ATTEND [facility] ([facility] - Medication Discharge Medications: Ambulatory Orders Quetiapine Fumarate [Seroquel -] 200 mg PO BID #60 tablet 12/03/17 Sertraline HCl [Zoloft -] 100 mg PO DAILY #30 tablet 12/03/17 traZODone HCL [Desyrel -] 100 mg PO HS #30 tablet 12/03/17 Pantoprazole Sodium [Protonix -] 20 mg PO DAILY #30 tablet.ec 02/25/18 Quetiapine Fumarate [Seroquel -] 200 mg PO HS #30 tab 04/01/18 Sertraline HCl [Zoloft] 100 mg PO DAILY #30 tablet 04/01/18 Trazodone HCl 50 mg PO HS #30 tablet 04/01/18 Lactulose (Oral Use) [Cephulac -] 20 gm PO TID 5 Days #15 bottle 04/02/18 - Diagnosis (1) Opioid dependence with withdrawal Status: Acute (2) Alcohol dependence with uncomplicated withdrawal Status: Acute (3) Cannabis dependence Status: Acute (4) Nicotine dependence Status: Acute Qualifiers: Nicotine product type: cigarettes Substance use status: uncomplicated Qualified Code(s): F17.210 - Nicotine dependence, cigarettes, uncomplicated (5) Tooth abscess Status: Acute (6) weight loss Status: Acute (7) GERD (gastroesophageal reflux disease) Status: Chronic Qualifiers: Esophagitis presence: esophagitis presence not specified Qualified Code(s) : K21.9 - Gastro-esophageal reflux disease without esophagitis (8) History of positive PPD Status: Chronic (9) Low back pain Status: Chronic Qualifiers: Chronicity: acute Back pain laterality: midline Sciatica presence: without sciatica Qualified Code(s): M54.5 - Low back pain (10) Bipolar II disorder Status: Suspected (11) Hyperammonemia Status: Acute (12) Bipolar I disorder, most recent episode (or current) depressed Status: Chronic - AMA Did Patient Leave Against Medical Advice: No
== END 2018-04-02 11:02 | disposition home or self-care (01) | DRG 773 ==
LOC: YASAS 15:04 → Y3N 19:25
PROVIDERS: ADMIT Surgery; ATTEND Surgery
PROC: HZ2ZZZZ Detoxification Services for Substance Abuse Treatment (ICD-10-PCS; principal; 2018-03-28)
DX: F11.23 Opioid dependence with withdrawal (principal); F10.230 Alcohol dependence with withdrawal, uncomplicated; F14.20 Cocaine dependence, uncomplicated; F12.20 Cannabis dependence, uncomplicated; F17.210 Nicotine dependence, cigarettes, uncomplicated; F31.30 Bipolar disorder, current episode depressed, mild or moderate severity, unspecified; F19.24 Other psychoactive substance dependence with psychoactive substance-induced mood disorder; F25.9 Schizoaffective disorder, unspecified; K21.9 Gastro-esophageal reflux disease without esophagitis; M54.5 Low back pain; E72.20 Disorder of urea cycle metabolism, unspecified; K04.7 Periapical abscess without sinus; R63.4 Abnormal weight loss; Z68.25 Body mass index [BMI] 25.0-25.9, adult
CPT/HCPCS: 36415; 80053; 81003; 82140; 85027; 86593; 93005; 93010

== ENCOUNTER 2019-02-02 17:24 | Inpatient (IN) | payer OTHER | END 2019-02-04 08:35 | disposition left against medical advice (07) | LOC: YASAS 17:24 → Y6N 21:51 ==